=== PATIENT | female | born 1990 | race Caucasian/White ===

== ENCOUNTER 2017-03-09 22:08 | Emergency (ER) | payer BC ==
--- NOTE | 2017-03-09 23:18 | EDM.PDOC ---
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 Since that time she has had regular periods and her last regular period was as above in the beginning of January. When she missed her period she did a test and it was positive. Patient tells me that she has been spotting using a small light pad every day since February 24 and in fact, today spotting has significantly reduced and is practically gone. She has not passed any tissue or clots and she says that today at 4 PM she started having right lower abdominal pain/pelvic pain and right flank pain without fever chills urinary complaints vomiting or diarrhea. She's been eating and drinking normally. She has not had sexual intercourse since beginning january. She is concerned because of her history of ectopic and this right-sided pain with a positive test. She has contacted [facility] women's health and has an appointment with them tomorrow but has not seen them yet. Patient denies any strenuous activities or other vaginal discharge other than the vaginal spotting. Patient is unsure of her blood type and unsure if she received RhoGAM with the ectopic and 2015 Review of systems: As per history of present illness and below otherwise all systems reviewed and negative. Past medical history: As per history of present illness and as reviewed below otherwise noncontributory. Surgical history: As per history of present illness and as reviewed below otherwise noncontributory. Social history: No reported history of drug or alcohol abuse. Family history: As per history of present illness and as reviewed below otherwise noncontributory. Physical exam: Gen.: Well-developed well-nourished female who is nontoxic and moves in the ED without distress. Vital signs are noted by me. HEENT: Atraumatic, normocephalic, pupils reactive, negative for conjunctival pallor or scleral icterus, mucous membranes moist, throat clear, neck supple, nontender, trachea midline. Lungs: Clear to auscultation, breath sounds equal bilaterally, chest nontender. Heart: S1S2, regular rate and rhythm no overt murmurs Abdomen: Soft, nondistended, mild suprapubic and right lower abdominal tenderness without rebound or guarding, bowel sounds are hypoactive Negative for masses or hepatosplenomegaly. Negative for costovertebral tenderness. Pelvis: Stable nontender. Genitourinary: Deferred. Rectal: Deferred. Extremities: Atraumatic, negative for cords or calf pain. Neurovascular unremarkable. Neuro: Awake, alert, oriented. Cranial nerves II through XII unremarkable. Cerebellum unremarkable. Motor and sensory unremarkable throughout. Exam nonfocal. Diagnostics: CBC UA urine culture if indicated quantitative hCG ABO Rh pelvic ultrasound Therapeutics: [] 0153: Case was discussed with Dr. Ferraro, as the patient has an appointment tomorrow with Nicole Jacinto. She is aware of all testing results including the ultrasound and says that the patient can be discharged home and can keep her appointment in the morning at 9 AM with them and they will follow this up with serial quantitative hCGs and ultrasounds. The patient was advised to take Tylenol only for pain and to keep this appointment and reasons to return to the ED Impression: Early versus early ectopic Definitive disposition and diagnosis as appropriate pending reevaluation and review of above. 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: Musculoskeletal History: Reports: None Neurological History: Reports: None Psychiatric History: Reports: None Endocrine/Metabolic History: Reports: None Dermatologic History: Reports: None - Infectious Disease History Infectious Disease History: Reports: None - Past Surgical History HEENT Surgical History: Reports: None Female Surgical History: Reports: Other (See Below) Other Female Surgeries/Procedures: removal of left tube in 2016 Social & Family History - Family History Family Medical History: Noncontributory - Tobacco Use Smoking Status *Q: Never Smoker - Recreational Drug Use Recreational Drug Use: No ED ROS GENERAL - Review of Systems Review Of Systems: ROS reveals no pertinent complaints other than HPI. ED EXAM, GENERAL - Physical Exam Exam: See Below (See dictation) Course - Vital Signs Last Recorded V/S: Last Vital Signs Temp 36.6 C 03/09/17 22:53 Pulse 76 03/10/17 01:23 Resp 14 03/10/17 01:23 BP 101/58 L 03/10/17 01:23 Pulse Ox 99 03/10/17 01:23 - Orders/Labs/Meds Orders: Active Orders 24 hr Category Date Time Status OB 1st Tri Sgl 1st Gest [US] Stat Exams 03/09/17 23:14 Taken Labs: Laboratory Tests 03/09/17 03/09/17 03/09/17 Range/Units 23:20 23:33 23:33 WBC 9.78 (4.0-11.0) K/uL RBC 3.76 L (4.30-5.90) M/uL Hgb 12.0 (12.0-16.0) g/dL Hct 34.5 L (36.0-46.0) % MCV 91.8 (80.0-98.0) fL MCH 31.9 (27.0-32.0) pg MCHC 34.8 (31.0-37.0) g/dL RDW Std Deviation 43.2 (28.0-62.0) fl RDW Coeff of Caren 13 (11.0-15.0) % Plt Count 296 (150-400) K/uL MPV 10.30 (7.40-12.00) fL Neut % (Auto) 73.2 (48.0-80.0) % Lymph % (Auto) 17.5 (16.0-40.0) % [place] % (Auto) 8.5 (0.0-15.0) % Eos % (Auto) 0.6 (0.0-7.0) % Baso % (Auto) 0.2 (0.0-1.5) % Neut # (Auto) 7.2 H (1.4-5.7) K/uL Lymph # (Auto) 1.7 (0.6-2.4) K/uL [place] # (Auto) 0.8 (0.0-0.8) K/uL Eos # (Auto) 0.1 (0.0-0.7) K/uL Baso # (Auto) 0.0 (0.0-0.1) K/uL Nucleated RBC % 0.0 /100WBC Nucleated RBCs # 0 K/uL HCG, Quant 95.1 mIU/mL Urine Color YELLOW Urine Appearance CLEAR Urine pH 7.0 (5.0-8.0) Ur Specific [place] 1.015 (1.001-1.035) Urine Protein NEGATIVE (NEGATIVE) mg/dL Urine Glucose (UA) NEGATIVE (NEGATIVE) mg/dL Urine Ketones NEGATIVE (NEGATIVE) mg/dL Urine Occult Blood LARGE H (NEGATIVE) Urine Nitrite NEGATIVE (NEGATIVE) Urine Bilirubin NEGATIVE (NEGATIVE) Urine Urobilinogen 0.2 (<2.0) EU/dL Ur Leukocyte Esterase NEGATIVE (NEGATIVE) Urine RBC 0-2 (0-2/HPF) Urine WBC 0-1 (0-5/HPF) Ur Epithelial Cells FEW (NONE-FEW) Urine Bacteria RARE (NEGATIVE) Blood Type 03/09/17 Range/Units 23:33 WBC (4.0-11.0) K/uL RBC (4.30-5.90) M/uL Hgb (12.0-16.0) g/dL Hct (36.0-46.0) % MCV (80.0-98.0) fL MCH (27.0-32.0) pg MCHC (31.0-37.0) g/dL RDW Std Deviation (28.0-62.0) fl RDW Coeff of Caren (11.0-15.0) % Plt Count (150-400) K/uL MPV (7.40-12.00) fL Neut % (Auto) (48.0-80.0) % Lymph % (Auto) (16.0-40.0) % [place] % (Auto) (0.0-15.0) % Eos % (Auto) (0.0-7.0) % Baso % (Auto) (0.0-1.5) % Neut # (Auto) (1.4-5.7) K/uL Lymph # (Auto) (0.6-2.4) K/uL [place] # (Auto) (0.0-0.8) K/uL Eos # (Auto) (0.0-0.7) K/uL Baso # (Auto) (0.0-0.1) K/uL Nucleated RBC % /100WBC Nucleated RBCs # K/uL HCG, Quant mIU/mL Urine Color Urine Appearance Urine pH (5.0-8.0) Ur Specific [place] (1.001-1.035) Urine Protein (NEGATIVE) mg/dL Urine Glucose (UA) (NEGATIVE) mg/dL Urine Ketones (NEGATIVE) mg/dL Urine Occult Blood (NEGATIVE) Urine Nitrite (NEGATIVE) Urine Bilirubin (NEGATIVE) Urine Urobilinogen (<2.0) EU/dL Ur Leukocyte Esterase (NEGATIVE) Urine RBC (0-2/HPF) Urine WBC (0-5/HPF) Ur Epithelial Cells (NONE-FEW) Urine Bacteria (NEGATIVE) Blood Type A POSITIVE Departure - Departure Time of Disposition: 01:57 Disposition: Home, Self-Care 01 Condition: Good Clinical Impression: with abdominal pain of right lower quadrant, antepartum - Discharge Information Referrals: PCP,None [Primary Care Provider] - Forms: ED Department Discharge Additional Instructions: The following information is given to patients seen in the emergency department who are being discharged to home. This information is to outline your options for follow-up care. We provide all patients seen in our emergency department with a follow-up referral. The need for follow-up, as well as the timing and circumstances, are variable depending upon the specifics of your emergency department visit. If you don't have a primary care physician on staff, we will provide you with a referral. We always advise you to contact your personal physician following an emergency department visit to inform them of the circumstance of the visit and for follow-up with them and/or the need for any referrals to a consulting specialist. The emergency department will also refer you to a specialist when appropriate. This referral assures that you have the opportunity for followup care with a specialist. All of these measure are taken in an effort to provide you with optimal care, which includes your followup. Under all circumstances we always encourage you to contact your private physician who remains a resource for coordinating your care. When calling for followup care, please make the office aware that this follow-up is from your recent emergency room visit. If for any reason you are refused follow-up, please contact the [facility] emergency department at and ask to speak to the emergency department charge nurse. [facility]'s [facility] [address] [place] [id number] Please keep your appointment tomorrow at [facility] at 9 AM. Nothing in vagina until you're followed up by the doctors. Use Tylenol only for pain push hydration and return to ER as needed and as discussed - My Orders Last 24 Hours: My Active Orders 03/09/17 23:14 OB 1st Tri Sgl 1st Gest [US] Stat - Assessment/Plan Last 24 Hours: My Active Orders 03/09/17 23:14 OB 1st Tri Sgl 1st Gest [US] Stat
--- NOTE | 2017-03-10 09:20 | US ---
EXAM DATE: 03/09/17 PATIENT'S AGE: 26 Patient: ROSS THIBODEAUX Facility: [place], [place] Site . Site : 1990 Study: US OB Pelvis [id number] 12:26:37 AM Ordering Physician: Daron Tarango Final Report: HISTORY: Right pelvic pain and bleeding x12 hours. HCG 95.1. History of left salpingectomy for ectopic in 2016. FINDINGS: Multiple delacruz scale static images from a OB ultrasound were evaluated. Uterus is normal size. The endometrial stripe is 9 millimeters in thickness. No intrauterine gestational sac is present. There is trace fluid seen lower uterine segment. There is free fluid seen within the cul-de-sac. Right ovary measures 2.5 x 1.6 x 1.9 centimeters. Adjacent to the right ovary is a complex mass measuring 2.8 x 1.7 x 2.3 centimeters. This mass and the right ovary have limited vascularity. No madeleine gestational sac or pole is seen. Left ovary measures 3.6 x 2.3 x 3.0 centimeters and is normal in appearance. IMPRESSION: 1. No intrauterine is identified. However, HCT of 95.1, an intrauterine would not be expected to be visualized. 2. 2.8 cm complex cystic masses seen within the right at adnexa adjacent to the ovary. This is suspicious for ectopic however this is not particularly vascular. It does not contain a gestational sac or pole. Consider close interval followup with ultrasound and serial HCG. Dictated by Laury Thibodeaux MD @ 03/10/2017 12:33:36 AM Dictated by: Laury Thibodeaux MD @ 03/10/2017 00:33:58 (Electronic Signature) Report Signed by Proxy. RADHA
== END 2017-03-10 02:05 | disposition home or self-care (01) ==
LOC: MW.ED 22:08
DX: O99.89 Other specified diseases and conditions complicating pregnancy, childbirth and the puerperium (principal); R10.31 Right lower quadrant pain; Z3A.01 Less than 8 weeks gestation of pregnancy
CPT/HCPCS: 36415; 76801; 76801-26; 81001; 84702; 85025; 86900; 86901; 99284; 99284-25

== ENCOUNTER 2018-07-13 07:18 | Emergency (ER) | payer BC ==
[2018-07-13] MEDS ORDERED: Sodium Chloride 0.9% 2.5 ML Syringe FLUSH PRN (07:36)
[2018-07-13] MEDS ORDERED: Ketorolac 30 MG/ML SDV IVPUSH ONE (07:36)
[2018-07-13] MEDS ORDERED: Sodium Chloride 0.9% 1,000 ML IV ONE (07:36)
[2018-07-13] MEDS ORDERED: Sodium Chloride 0.9% 10 ML Syringe FLUSH PRN (07:36)
--- NOTE | 2018-07-13 07:36 | EDM.PDOC ---
ED HPI GENERAL MEDICAL PROBLEM - General Chief Complaint: Chest Pain Stated Complaint: CHEST PAINS Time Seen by Provider: 07/13/18 07:20 Source of Information: Reports: Patient History Limitations: Reports: No Limitations - History of Present Illness INITIAL COMMENTS - FREE TEXT/NARRATIVE: History of present illness: []Patient was at work and started having repeated sharp left sided chest pains that lasted 1-2 seconds. She sat down however the pains continued. Also states she feels lightheaded and dizzy without spinning sensation. Patient also felt she sweaty at the time of the symptoms. No shortness of breath, leg pain nausea , vomiting, fevers, chills, diarrhea. Patient has no history of blood clots, is not currently on control and denies smoking. Review of systems: As per history of present illness and below otherwise all systems reviewed and negative. Past medical history: As per history of present illness and as reviewed below otherwise noncontributory. Surgical history: As per history of present illness and as reviewed below otherwise noncontributory. Social history: No reported history of drug or alcohol abuse. Family history: As per history of present illness and as reviewed below otherwise noncontributory. Physical exam: General: Well developed, well nourished in NAD HEENT: Atraumatic, normocephalic, pupils reactive, negative for conjunctival pallor or scleral icterus, mucous membranes moist, throat clear, neck supple, nontender, trachea midline. Lungs: Clear to auscultation, breath sounds equal bilaterally, chest nontender. Heart: S1S2, regular, negative for clicks, rubs, or JVD. Abdomen: NABS, Soft, nondistended, nontender. Negative for masses or hepatosplenomegaly. Negative for costovertebral tenderness. Pelvis: Stable nontender. Genitourinary: Deferred. Rectal: Deferred. Extremities: Atraumatic, negative for cords or calf pain. Neurovascular unremarkable. Neuro: Awake, alert, oriented. Cranial nerves II through XII unremarkable. Cerebellum unremarkable. Motor and sensory unremarkable throughout. Exam nonfocal. Skin:warm and dry Diagnostics: EKG, chest x-ray, CBC, chemistry, troponin, UA, Therapeutics: The fluid, Toradol ED Course: Improved Impression: Dizziness, atypical chest pain Prescriptions: None Plan: Follow-up with primary care. Definitive disposition and diagnosis as appropriate pending reevaluation and review of above. 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: Musculoskeletal History: Reports: None Neurological History: Reports: None Psychiatric History: Reports: None Endocrine/Metabolic History: Reports: None Dermatologic History: Reports: None - Infectious Disease History Infectious Disease History: Reports: Chicken Pox - Past Surgical History HEENT Surgical History: Reports: None Female Surgical History: Reports: Other (See Below) Other Female Surgeries/Procedures: removal of left tube in 2016 Social & Family History - Family History Family Medical History: Noncontributory - Tobacco Use Smoking Status *Q: Never Smoker - Caffeine Use Caffeine Use: Reports: Coffee, Energy Drinks, Soda - Recreational Drug Use Recreational Drug Use: No ED ROS GENERAL - Review of Systems Review Of Systems: ROS reveals no pertinent complaints other than HPI. ED EXAM, GENERAL - Physical Exam Exam: See Below (See history of present illness) Course - Vital Signs Last Recorded V/S: Last Vital Signs Temp 97.4 F 07/13/18 07:24 Pulse 79 07/13/18 07:24 Resp 16 07/13/18 07:24 BP 123/81 07/13/18 07:24 Pulse Ox 99 07/13/18 07:24 - Orders/Labs/Meds Orders: Active Orders 24 hr Category Date Time Status EKG Documentation Completion [RC] STAT Care 07/13/18 07:35 Active Sodium Chloride 0.9% [Saline Flush] Med 07/13/18 07:36 Active 10 ml FLUSH ASDIRECTED PRN Sodium Chloride 0.9% [Saline Flush] Med 07/13/18 07:36 Active 2.5 ml FLUSH ASDIRECTED PRN Saline Lock Insert [OM.PC] Stat Oth 07/13/18 07:35 Ordered Medication Orders Sodium Chloride (Saline Flush) 10 ml FLUSH ASDIRECTED PRN PRN Reason: Keep Vein Open Last Admin: 07/13/18 07:58 Dose: 10 ml Sodium Chloride (Saline Flush) 2.5 ml FLUSH ASDIRECTED PRN PRN Reason: Keep Vein Open Last Admin: 07/13/18 07:58 Dose: 2.5 ml Labs: Laboratory Tests 07/13/18 07/13/18 07/13/18 Range/Units 07:40 07:40 08:55 WBC 6.44 (4.0-11.0) K/uL RBC 3.99 L (4.30-5.90) M/uL Hgb 12.6 (12.0-16.0) g/dL Hct 36.8 (36.0-46.0) % MCV 92.2 (80.0-98.0) fL MCH 31.6 (27.0-32.0) pg MCHC 34.2 (31.0-37.0) g/dL RDW Std Deviation 43.8 (28.0-62.0) fl RDW Coeff of Caren 13 (11.0-15.0) % Plt Count 276 (150-400) K/uL MPV 10.50 (7.40-12.00) fL Neut % (Auto) 63.3 (48.0-80.0) % Lymph % (Auto) 25.6 (16.0-40.0) % [place] % (Auto) 8.9 (0.0-15.0) % Eos % (Auto) 1.7 (0.0-7.0) % Baso % (Auto) 0.5 (0.0-1.5) % Neut # (Auto) 4.1 (1.4-5.7) K/uL Lymph # (Auto) 1.7 (0.6-2.4) K/uL [place]ick # (Auto) 0.6 (0.0-0.8) K/uL Eos # (Auto) 0.1 (0.0-0.7) K/uL Baso # (Auto) 0.0 (0.0-0.1) K/uL Nucleated RBC % 0.0 /100WBC Nucleated RBCs # 0 K/uL Sodium 141 (136-145) mmol/L Potassium 3.9 (3.5-5.1) mmol/L Chloride 105 (98-107) mmol/L Carbon Dioxide 25.3 (21.0-32.0) mmol/L BUN 16 (7.0-18.0) mg/dL Creatinine 0.9 (0.6-1.0) mg/dL Est Cr Clr Drug Dosing 79.64 mL/min Estimated GFR (MDRD) > 60.0 ml/min Glucose 92 (74-106) mg/dL Calcium 9.6 (8.5-10.1) mg/dL Total Bilirubin 0.5 (0.2-1.0) mg/dL AST 16 (15-37) IU/L ALT 26 (14-63) IU/L Alkaline Phosphatase 57 (46-116) U/L Troponin I < 0.050 (0.000-0.056) ng/mL Total Protein 7.8 (6.4-8.2) g/dL Albumin 4.0 (3.4-5.0) g/dL Globulin 3.8 (2.6-4.0) g/dL Albumin/Globulin Ratio 1.1 (0.9-1.6) Urine Color YELLOW Urine Appearance SLT CLOUDY Urine pH 6.0 (5.0-8.0) Ur Specific [place] 1.010 (1.001-1.035) Urine Protein NEGATIVE (NEGATIVE) mg/dL Urine Glucose (UA) NEGATIVE (NEGATIVE) mg/dL Urine Ketones NEGATIVE (NEGATIVE) mg/dL Urine Occult Blood NEGATIVE (NEGATIVE) Urine Nitrite NEGATIVE (NEGATIVE) Urine Bilirubin NEGATIVE (NEGATIVE) Urine Urobilinogen 0.2 (<2.0) EU/dL Ur Leukocyte Esterase NEGATIVE (NEGATIVE) Urine RBC NONE SEEN (0-2/HPF) Urine WBC 0-1 (0-5/HPF) Ur Epithelial Cells OCCASIONAL (NONE-FEW) Urine Bacteria RARE (NEGATIVE) Urine HCG, Qual (NEGATIVE) 07/13/18 Range/Units 08:55 WBC (4.0-11.0) K/uL RBC (4.30-5.90) M/uL Hgb (12.0-16.0) g/dL Hct (36.0-46.0) % MCV (80.0-98.0) fL MCH (27.0-32.0) pg MCHC (31.0-37.0) g/dL RDW Std Deviation (28.0-62.0) fl RDW Coeff of Caren (11.0-15.0) % Plt Count (150-400) K/uL MPV (7.40-12.00) fL Neut % (Auto) (48.0-80.0) % Lymph % (Auto) (16.0-40.0) % Maverick % (Auto) (0.0-15.0) % Eos % (Auto) (0.0-7.0) % Baso % (Auto) (0.0-1.5) % Neut # (Auto) (1.4-5.7) K/uL Lymph # (Auto) (0.6-2.4) K/uL [place]ick # (Auto) (0.0-0.8) K/uL Eos # (Auto) (0.0-0.7) K/uL Baso # (Auto) (0.0-0.1) K/uL Nucleated RBC % /100WBC Nucleated RBCs # K/uL Sodium (136-145) mmol/L Potassium (3.5-5.1) mmol/L Chloride (98-107) mmol/L Carbon Dioxide (21.0-32.0) mmol/L BUN (7.0-18.0) mg/dL Creatinine (0.6-1.0) mg/dL Est Cr Clr Drug Dosing mL/min Estimated GFR (MDRD) ml/min Glucose (74-106) mg/dL Calcium (8.5-10.1) mg/dL Total Bilirubin (0.2-1.0) mg/dL AST (15-37) IU/L ALT (14-63) IU/L Alkaline Phosphatase (46-116) U/L Troponin I (0.000-0.056) ng/mL Total Protein (6.4-8.2) g/dL Albumin (3.4-5.0) g/dL Globulin (2.6-4.0) g/dL Albumin/Globulin Ratio (0.9-1.6) Urine Color Urine Appearance Urine pH (5.0-8.0) Ur Specific [place] (1.001-1.035) Urine Protein (NEGATIVE) mg/dL Urine Glucose (UA) (NEGATIVE) mg/dL Urine Ketones (NEGATIVE) mg/dL Urine Occult Blood (NEGATIVE) Urine Nitrite (NEGATIVE) Urine Bilirubin (NEGATIVE) Urine Urobilinogen (<2.0) EU/dL Ur Leukocyte Esterase (NEGATIVE) Urine RBC (0-2/HPF) Urine WBC (0-5/HPF) Ur Epithelial Cells (NONE-FEW) Urine Bacteria (NEGATIVE) Urine HCG, Qual NEGATIVE (NEGATIVE) Meds: Medications Generic Name Dose Route Start Last Admin Trade Name Freq PRN Reason Stop Dose Admin Sodium Chloride 10 ml 07/13/18 07:36 07/13/18 07:58 Saline Flush FLUSH 10 ml ASDIRECTED PRN Administration Keep Vein Open Sodium Chloride 2.5 ml 07/13/18 07:36 07/13/18 07:58 Saline Flush FLUSH 2.5 ml ASDIRECTED PRN Administration Keep Vein Open Discontinued Medications Generic Name Dose Route Start Last Admin Trade Name Freq PRN Reason Stop Dose Admin Sodium Chloride 1,000 mls @ 999 mls/hr 07/13/18 07:36 07/13/18 07:54 Normal Saline IV 07/13/18 08:36 999 mls/hr .Bolus ONE Administration Ketorolac Tromethamine 30 mg 07/13/18 07:36 07/13/18 07:57 Toradol IVPUSH 07/13/18 07:37 30 mg ONETIME ONE Administration Departure - Departure Time of Disposition: 09:21 Disposition: Home, Self-Care 01 Condition: Good Clinical Impression: Atypical chest pain, Dizziness Forms: ED Department Discharge Additional Instructions: The following information is given to patients seen in the emergency department who are being discharged to home. This information is to outline your options for follow-up care. We provide all patients seen in our emergency department with a follow-up referral. The need for follow-up, as well as the timing and circumstances, are variable depending upon the specifics of your emergency department visit. If you don't have a primary care physician on staff, we will provide you with a referral. We always advise you to contact your personal physician following an emergency department visit to inform them of the circumstance of the visit and for follow-up with them and/or the need for any referrals to a consulting specialist. The emergency department will also refer you to a specialist when appropriate. This referral assures that you have the opportunity for follow-up care with a specialist. All of these measure are taken in an effort to provide you with optimal care, which includes your follow-up. Under all circumstances we always encourage you to contact your private physician who remains a resource for coordinating your care. When calling for follow-up care, please make the office aware that this follow-up is from your recent emergency room visit. If for any reason you are refused follow-up, please contact the [facility] Emergency Department at and asked to speak to the emergency department charge nurse. [facility] [address] [place] [address] - My Orders Last 24 Hours: My Active Orders 07/13/18 07:35 EKG Documentation Completion [RC] STAT Saline Lock Insert [OM.PC] Stat 07/13/18 07:36 Sodium Chloride 0.9% [Saline Flush] 10 ml FLUSH ASDIRECTED PRN Sodium Chloride 0.9% [Saline Flush] 2.5 ml FLUSH ASDIRECTED PRN - Assessment/Plan Last 24 Hours: My Active Orders 07/13/18 07:35 EKG Documentation Completion [RC] STAT Saline Lock Insert [OM.PC] Stat 07/13/18 07:36 Sodium Chloride 0.9% [Saline Flush] 10 ml FLUSH ASDIRECTED PRN Sodium Chloride 0.9% [Saline Flush] 2.5 ml FLUSH ASDIRECTED PRN
[2018-07-13 08:22] LABS: CHLORIDE,CL 105 mmol/L (98-107); SODIUM,NA 141 mmol/L (136-145)
--- NOTE | 2018-07-13 09:10 | CR ---
EXAMINATION: Portable chest radiograph. HISTORY: Shortness of breath. FINDINGS: The trachea is midline. The cardiomediastinal silhouette is within normal limits. No pulmonary infiltrates, effusions or pneumothorax. Osseous structures appear unremarkable. IMPRESSION: No acute cardiopulmonary process.
== END 2018-07-13 09:42 | disposition home or self-care (01) ==
LOC: MW.ED 07:18
DX: R07.89 Other chest pain (principal); R42 Dizziness and giddiness; Z79.899 Other long term (current) drug therapy
CPT/HCPCS: 36415; 71045; 80053; 81001; 81025; 84484; 85025; 93005; 96361; 96374; 99285; J1885; J7040

== ENCOUNTER 2018-11-23 18:52 | Emergency (ER) | payer BC ==
[2018-11-23] MEDS ORDERED: Sodium Chloride 0.9% 1,000 ML IV ONE (19:27)
[2018-11-23 19:34] LABS: BLOOD UREA NITROGEN,BUN 7 mg/dL (7.0-18.0); CARBON DIOXIDE,CO2 22.4 mmol/L (21.0-32.0); CHLORIDE,CL 103 mmol/L (98-107); GLUCOSE RANDOM 92 mg/dL (74-106); POTASSIUM,K 3.7 mmol/L (3.5-5.1); SODIUM,NA 138 mmol/L (136-145)
--- NOTE | 2018-11-23 19:47 | EDM.PDOC ---
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 The patient states that she is 8 weeks and has been having trouble with nausea and vomiting despite taking Zofran. She states that today she vomited 5-6 times and was not even able to keep down water. She denies any abdominal pain or cramping, urinary symptoms, vaginal symptoms. no pain Pain Score (Numeric/FACES): 0 - Related Data Allergies Allergy/AdvReac Type Severity Reaction Status Date / Time No Known Allergies Allergy Verified 11/23/18 18:59 Home Meds: Home Meds Cholecalciferol (Vitamin D3) [Vitamin D3] 1,000 unit PO DAILY 03/09/17 [History] Mv-Mn/Iron/FA/Herbal/Digestive [ One Tablet] 1 tab PO DAILY 03/09/17 [ History] Ondansetron [Zofran ODT] 4 mg PO Q8HR 11/23/18 [History] Sertraline HCl [Zoloft] 100 mg PO BEDTIME 11/23/18 [History] Past Medical History HEENT History: Reports: None Cardiovascular History: Reports: None Respiratory History: Reports: None Gastrointestinal History: Reports: None Genitourinary History: Reports: None 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 , Musculoskeletal History: Reports: None Neurological History: Reports: None Psychiatric History: Reports: None Endocrine/Metabolic History: Reports: None Dermatologic History: Reports: None - Infectious Disease History Infectious Disease History: Reports: None - Past Surgical History HEENT Surgical History: Reports: None Female Surgical History: Reports: Other (See Below) Other Female Surgeries/Procedures: removal of left tube in 2016 Social & Family History - Family History Family Medical History: Noncontributory - Caffeine Use Caffeine Use: Reports: Coffee, Energy Drinks, Soda - Recreational Drug Use Recreational Drug Use: No ED ROS GENERAL - Review of Systems Review Of Systems: ROS reveals no pertinent complaints other than HPI. ED EXAM - Physical Exam Exam: See Below Exam Limited By: No Limitations General Appearance: Alert, No Apparent Distress Ears: Normal External Exam Nose: Normal Inspection Throat/Mouth: Normal Inspection Head: Atraumatic, Normocephalic Neck: Normal Inspection Respiratory/Chest: No Respiratory Distress, Lungs Clear, Normal Breath Sounds Cardiovascular: Normal Peripheral Pulses, Regular Rate, Rhythm, No Murmur GI/Abdominal Exam: Normal Bowel Sounds, Soft, Non-Tender, No Distention Back Exam: Normal Inspection Extremities: Normal Inspection Neurological: Alert, Oriented Psychiatric: Normal Affect, Normal Mood Skin Exam: Warm, Dry, Intact, Normal Color, No Rash Lymphatic: No Adenopathy Course - Vital Signs Last Recorded V/S: Last Vital Signs Temp 36.4 C 11/23/18 19:01 Pulse 88 11/23/18 19:01 Resp 16 11/23/18 19:01 BP 107/71 11/23/18 19:01 Pulse Ox 98 11/23/18 19:01 - Orders/Labs/Meds Orders: Active Orders 24 hr Category Date Time Status Sodium Chloride 0.9% [Normal Saline] 1,000 ml Med 11/23/18 19:27 Active IV .Bolus Medication Orders Sodium Chloride (Normal Saline) 1,000 mls @ 999 mls/hr IV .Bolus ONE Stop: 11/23/18 20:27 Last Admin: 11/23/18 19:28 Dose: 999 mls/hr Labs: Laboratory Tests 11/23/18 Range/Units 19:04 Sodium 138 (136-145) mmol/L Potassium 3.7 (3.5-5.1) mmol/L Chloride 103 (98-107) mmol/L Carbon Dioxide 22.4 (21.0-32.0) mmol/L BUN 7 (7.0-18.0) mg/dL Creatinine 0.7 (0.6-1.0) mg/dL Est Cr Clr Drug Dosing 111.01 mL/min Estimated GFR (MDRD) > 60.0 ml/min Glucose 92 (74-106) mg/dL Calcium 9.1 (8.5-10.1) mg/dL Meds: Medications Generic Name Dose Route Start Last Admin Trade Name Freq PRN Reason Stop Dose Admin Sodium Chloride 1,000 mls @ 999 mls/hr 11/23/18 19:27 11/23/18 19:28 Normal Saline IV 11/23/18 20:27 999 mls/hr .Bolus ONE Administration Departure - Departure Time of Disposition: 19:45 Disposition: Home, Self-Care 01 Condition: Good Clinical Impression: Nausea and vomiting during - Discharge Information Referrals: PCP,None [Primary Care Provider] - Marbella Ferraro MD [Physician] - Additional Instructions: The following information is given to patients seen in the emergency department who are being discharged to home. This information is to outline your options for follow-up care. We provide all patients seen in our emergency department with a follow-up referral. The need for follow-up, as well as the timing and circumstances, are variable depending upon the specifics of your emergency department visit. If you don't have a primary care physician on staff, we will provide you with a referral. We always advise you to contact your personal physician following an emergency department visit to inform them of the circumstance of the visit and for follow-up with them and/or the need for any referrals to a consulting specialist. The emergency department will also refer you to a specialist when appropriate. This referral assures that you have the opportunity for follow-up care with a specialist. All of these measure are taken in an effort to provide you with optimal care, which includes your follow-up. Under all circumstances we always encourage you to contact your private physician who remains a resource for coordinating your care. When calling for follow-up care, please make the office aware that this follow-up is from your recent emergency room visit. If for any reason you are refused follow-up, please contact the [facility] Emergency Department at and asked to speak to the emergency department charge nurse. 1. Follow-up with Dr. ferraro - My Orders Last 24 Hours: My Active Orders 11/23/18 19:27 Sodium Chloride 0.9% [Normal Saline] 1,000 ml IV .Bolus - Assessment/Plan Last 24 Hours: My Active Orders 11/23/18 19:27 Sodium Chloride 0.9% [Normal Saline] 1,000 ml IV .Bolus
== END 2018-11-23 20:01 | disposition home or self-care (01) ==
LOC: MW.ED 18:52
DX: O21.9 Vomiting of pregnancy, unspecified (principal); Z79.899 Other long term (current) drug therapy; Z3A.08 8 weeks gestation of pregnancy
CPT/HCPCS: 36415; 80048; 99284; J7040

== ENCOUNTER 2018-12-20 10:42 | Emergency (ER) | payer BC ==
[2018-12-20] MEDS ORDERED: Sodium Chloride 0.9% 1,000 ML IV ONE (10:56)
[2018-12-20] MEDS ORDERED: Ondansetron 4 MG/2 ML SDV IVPUSH ONE (10:56)
--- NOTE | 2018-12-20 11:00 | EDM.PDOC ---
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 Patient states she 's had issues with nausea and vomiting throughout her whole and follows with Dr. Ferraro. Patient states that she was originally taking Zofran which had stopped working for her so Dr. Ferraro switched her to Phenergan. Patient states she has not taken her Phenergan today. Patient states she's had 2 episodes of vomiting today and has not been drinking or eating today. Patient denies any abdominal pain, cramping, or vaginal bleeding or concerns. Patient was seen in the ED on 11/23/18 for nausea and vomiting during . Patient denies fever, chills, chest pain, shortness of breath, or cough. Denies headache, neck stiff ness, change in vision, syncope, or near syncope. Denies abdominal pain, diarrhea, constipation, or dysuria. Has not noted any blood in urine or stool. Review of systems: As per history of present illness and below otherwise all systems reviewed and negative. Past medical history: As per history of present illness and as reviewed below otherwise noncontributory. Surgical history: As per history of present illness and as reviewed below otherwise noncontributory. Social history: See social history for further information Family history: As per history of present illness and as reviewed below otherwise noncontributory. Physical exam: General: Patient is alert, oriented, and in no acute distress. Patient sitting comfortably on exam table. HEENT: Atraumatic, normocephalic, pupils equal and reactive bilaterally, negative for conjunctival pallor or scleral icterus, mucous membranes dry, TMs normal bilaterally, throat clear, neck supple, nontender, trachea midline. No drooling or trismus noted. No meningeal signs. No hot potato voice noted. Lungs: Clear to auscultation, breath sounds equal bilaterally, chest nontender. Heart: S1S2, regular rate and rhythm without overt murmur Abdomen: Soft, nondistended, nontender. Negative for masses or hepatosplenomegaly. Negative for costovertebral tenderness. Pelvis: Stable nontender. Genitourinary: Deferred. Rectal: Deferred. Skin: Intact, warm, dry. No lesions or rashes noted. Extremities: Atraumatic, negative for cords or calf pain. Neurovascular unremarkable. Neuro: Awake, alert, oriented. Cranial nerves II through XII unremarkable. Cerebellum unremarkable. Motor and sensory unremarkable throughout. Exam nonfocal. Notes: Patient is able to tolerate by mouth intake in the ED and states that she feels much better with therapeutics today. Did call Dr. ferraro and has a follow-up appointment with her established. Voices understanding and is agreeable to plan of care. Denies any further questions or concerns at this time. Diagnostics: CBC, CMP, UA Therapeutics: Zofran, Saline Prescription: None Impression: Nausea and vomiting , 12 weeks Plan: 1. Encourage small but frequent sips of fluids to prevent dehydration. 2. Follow-up with your MASTER CONTROL ENGINEER provider as scheduled and as discussed. Return to the ED as needed and as discussed. Definitive disposition and diagnosis as appropriate pending reevaluation and review of above. - Related Data Allergies Allergy/AdvReac Type Severity Reaction Status Date / Time No Known Allergies Allergy Verified 11/23/18 18:59 Home Meds: Home Meds Cholecalciferol (Vitamin D3) [Vitamin D3] 1,000 unit PO DAILY 03/09/17 [History] Mv-Mn/Iron/FA/Herbal/Digestive [ One Tablet] 1 tab PO DAILY 03/09/17 [ History] Ondansetron [Zofran ODT] 4 mg PO Q8HR 11/23/18 [History] Sertraline HCl [Zoloft] 100 mg PO BEDTIME 11/23/18 [History] Past Medical History HEENT History: Reports: None Cardiovascular History: Reports: None Respiratory History: Reports: None Gastrointestinal History: Reports: None Genitourinary History: Reports: None 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 , Musculoskeletal History: Reports: None Neurological History: Reports: None Psychiatric History: Reports: None Endocrine/Metabolic History: Reports: None Dermatologic History: Reports: None - Infectious Disease History Infectious Disease History: Reports: None - Past Surgical History HEENT Surgical History: Reports: None Female Surgical History: Reports: Other (See Below) Other Female Surgeries/Procedures: removal of left tube in 2016 Social & Family History - Family History Family Medical History: Noncontributory - Caffeine Use Caffeine Use: Reports: Coffee, Energy Drinks, Soda ED ROS GENERAL - Review of Systems Review Of Systems: ROS reveals no pertinent complaints other than HPI. ED EXAM, GENERAL - Physical Exam Exam: See Below (See dictation) Course - Vital Signs Last Recorded V/S: Last Vital Signs Temp 97.3 F 12/20/18 10:55 Pulse 101 H 12/20/18 10:55 Resp 16 12/20/18 10:55 BP 107/71 12/20/18 10:55 Pulse Ox 100 12/20/18 11:03 Orthostatic Blood Pressure [ 121/70 Standing] Orthostatic Blood Pressure [ 111/68 Sitting] Orthostatic Blood Pressure [ 116/68 Supine] - Orders/Labs/Meds Orders: Active Orders 24 hr Category Date Time Status Orthostatic Vital Signs [RC] ASDIRECTED Care 12/20/18 10:57 Active Labs: Laboratory Tests 12/20/18 12/20/18 12/20/18 Range/Units 10:59 11:08 11:08 WBC 12.86 H (4.0-11.0) K/uL RBC 3.97 L (4.30-5.90) M/uL Hgb 12.7 (12.0-16.0) g/dL Hct 35.0 L (36.0-46.0) % MCV 88.2 (80.0-98.0) fL MCH 32.0 (27.0-32.0) pg MCHC 36.3 (31.0-37.0) g/dL RDW Std Deviation 39.7 (28.0-62.0) fl RDW Coeff of Caren 12 (11.0-15.0) % Plt Count 307 (150-400) K/uL MPV 10.50 (7.40-12.00) fL Neut % (Auto) 84.6 H (48.0-80.0) % Lymph % (Auto) 9.6 L (16.0-40.0) % [place] % (Auto) 5.4 (0.0-15.0) % Eos % (Auto) 0.2 (0.0-7.0) % Baso % (Auto) 0.2 (0.0-1.5) % Neut # (Auto) 10.9 H (1.4-5.7) K/uL Lymph # (Auto) 1.2 (0.6-2.4) K/uL [place] # (Auto) 0.7 (0.0-0.8) K/uL Eos # (Auto) 0.0 (0.0-0.7) K/uL Baso # (Auto) 0.0 (0.0-0.1) K/uL Nucleated RBC % 0.0 /100WBC Nucleated RBCs # 0 K/uL Sodium 133 L (136-145) mmol/L Potassium 3.6 (3.5-5.1) mmol/L Chloride 98 (98-107) mmol/L Carbon Dioxide 20.0 L (21.0-32.0) mmol/L BUN 10 (7.0-18.0) mg/dL Creatinine 0.9 (0.6-1.0) mg/dL Est Cr Clr Drug Dosing 79.64 mL/min Estimated GFR (MDRD) > 60.0 ml/min Glucose 87 (74-106) mg/dL Calcium 9.7 (8.5-10.1) mg/dL Total Bilirubin 0.6 (0.2-1.0) mg/dL AST 18 (15-37) IU/L ALT 16 (14-63) IU/L Alkaline Phosphatase 49 (46-116) U/L Total Protein 8.4 H (6.4-8.2) g/dL Albumin 4.0 (3.4-5.0) g/dL Globulin 4.4 H (2.6-4.0) g/dL Albumin/Globulin Ratio 0.9 (0.9-1.6) Urine Color YELLOW Urine Appearance CLEAR Urine pH 5.5 (5.0-8.0) Ur Specific [place] >= 1.030 (1.001-1.035) Urine Protein NEGATIVE (NEGATIVE) mg/dL Urine Glucose (UA) NEGATIVE (NEGATIVE) mg/dL Urine Ketones >=80 (NEGATIVE) mg/dL Urine Occult Blood NEGATIVE (NEGATIVE) Urine Nitrite NEGATIVE (NEGATIVE) Urine Bilirubin SMALL H (NEGATIVE) Urine Ictotest NEGATIVE Urine Urobilinogen 0.2 (<2.0) EU/dL Ur Leukocyte Esterase NEGATIVE (NEGATIVE) Meds: Medications Discontinued Medications Generic Name Dose Route Start Last Admin Trade Name Kayla PRN Reason Stop Dose Admin Sodium Chloride 1,000 mls @ 999 mls/hr 12/20/18 10:56 12/20/18 11:14 Normal Saline IV 12/20/18 11:56 999 mls/hr STAT ONE Administration Ondansetron HCl 4 mg 12/20/18 10:56 12/20/18 11:14 Zofran IVPUSH 12/20/18 10:57 4 mg ONETIME ONE Administration Departure - Departure Time of Disposition: 12:35 Disposition: Home, Self-Care 01 Clinical Impression: Nausea and vomiting Qualifiers: Vomiting type: unspecified Vomiting Intractability: non-intractable Qualified Code(s): R11.2 - Nausea with vomiting, unspecified Qualifiers: Weeks of gestation: 12 weeks Qualified Code(s): Z3A.12 - 12 weeks gestation of - Discharge Information Instructions: Hyperemesis Gravidarum, Nausea and Vomiting, Adult, [id number] Referrals: Marbella Ferraro MD [Primary Care Provider] - Forms: ED Department Discharge Additional Instructions: The following information is given to patients seen in the emergency department who are being discharged to home. This information is to outline your options for follow-up care. We provide all patients seen in our emergency department with a follow-up referral. The need for follow-up, as well as the timing and circumstances, are variable depending upon the specifics of your emergency department visit. If you don't have a primary care physician on staff, we will provide you with a referral. We always advise you to contact your personal physician following an emergency department visit to inform them of the circumstance of the visit and for follow-up with them and/or the need for any referrals to a consulting specialist. The emergency department will also refer you to a specialist when appropriate. This referral assures that you have the opportunity for follow-up care with a specialist. All of these measure are taken in an effort to provide you with optimal care, which includes your follow-up. Under all circumstances we always encourage you to contact your private physician who remains a resource for coordinating your care. When calling for follow-up care, please make the office aware that this follow-up is from your recent emergency room visit. If for any reason you are refused follow-up, please contact the [facility] Emergency Department at and asked to speak to the emergency department charge nurse. [facility] [address] [place] [address] [facility] [address] [place] [id number] [facility] [address] [place] [address] 1. Encourage small but frequent sips of fluids to prevent dehydration. 2. Follow-up with your MASTER CONTROL ENGINEER provider as scheduled and as discussed. Return to the ED as needed and as discussed. - My Orders Last 24 Hours: My Active Orders 12/20/18 10:57 Orthostatic Vital Signs [RC] ASDIRECTED - Assessment/Plan Last 24 Hours: My Active Orders 12/20/18 10:57 Orthostatic Vital Signs [RC] ASDIRECTED
[2018-12-20 11:50] LABS: BLOOD UREA NITROGEN,BUN 10 mg/dL (7.0-18.0); CHLORIDE,CL 98 mmol/L (98-107); GLUCOSE RANDOM 87 mg/dL (74-106); POTASSIUM,K 3.6 mmol/L (3.5-5.1); SODIUM,NA 133 mmol/L (136-145)
== END 2018-12-20 12:55 | disposition home or self-care (01) ==
LOC: MW.ED 10:42
DX: O21.9 Vomiting of pregnancy, unspecified (principal); Z3A.12 12 weeks gestation of pregnancy
CPT/HCPCS: 36415; 80053; 81003; 85025; 96361; 96374; 99284; J2405; J7040

== ENCOUNTER 2019-01-08 12:57 | Emergency (ER) | payer BC ==
[2019-01-08] MEDS ORDERED: Sodium Chloride 0.9% 2.5 ML Syringe FLUSH PRN (13:08)
[2019-01-08] MEDS ORDERED: Sodium Chloride 0.9% 10 ML Syringe FLUSH PRN (13:08)
[2019-01-08] MEDS ORDERED: Ondansetron 4 MG/2 ML SDV IVPUSH ONE (13:08)
[2019-01-08] MEDS ORDERED: Sodium Chloride 0.9% 1,000 ML IV ONE (13:08)
--- NOTE | 2019-01-08 13:08 | EDM.PDOC ---
ED HPI GENERAL MEDICAL PROBLEM - General Chief Complaint: Gastrointestinal Problem Stated Complaint: 15 WEEKS PREG-VOMITING Time Seen by Provider: 01/08/19 13:07 Source of Information: Reports: Patient History Limitations: Reports: No Limitations - History of Present Illness INITIAL COMMENTS - FREE TEXT/NARRATIVE: HISTORY AND PHYSICAL: History of present illness: Patient is a 28-year-old female 15 weeks gestation presents with complaint of vomiting. Patient has history of hyperemesis gravidarum and sees Dr. Ferraro. She takes oral anti-emetics as well as suppositories. She states today they are not helping and she has had at least 5 episodes of vomiting and not able to keep anything down. She denies fevers, chills, abdominal pain, vaginal bleeding or discharge. Review of systems: As per history of present illness and below otherwise all systems reviewed and negative. Past medical history: As per history of present illness and as reviewed below otherwise noncontributory. Surgical history: As per history of present illness and as reviewed below otherwise noncontributory. Social history: No reported history of drug or alcohol abuse. Family history: As per history of present illness and as reviewed below otherwise noncontributory. Physical exam: General: Patient sitting comfortably in no acute distress and nontoxic appearing HEENT: Atraumatic, normocephalic, pupils reactive, negative for conjunctival pallor or scleral icterus, mucous membranes moist, throat clear, neck supple, nontender, trachea midline. No meningeal signs. Lungs: Clear to auscultation, breath sounds equal bilaterally, chest nontender. Heart: S1S2, regular, negative for clicks, rubs, or overt murmur. Abdomen: Mild right lower quadrant tenderness to palpation. Gravid uterus felt 3cm below umbilicus. Soft, nondistended. Negative for masses or hepatosplenomegaly. Negative for costovertebral tenderness. No rigidity, rebound , guarding. Pelvis: Stable nontender. Genitourinary: Deferred. Rectal: Deferred. Extremities: Atraumatic, negative for cords or calf pain. Neurovascular unremarkable. Neuro: Awake, alert, oriented. Cranial nerves II through XII unremarkable. Cerebellum unremarkable. Motor and sensory unremarkable throughout. Exam nonfocal. Notes: Discussed with Dr. Lopez, she agreed to IV Rocephin here and discharge home on keflex with close follow up. Patient tolerating PO fluids. Diagnostics: CBC, CMP, UA Therapeutics: 1L NS IV 4mg Zofran IV 1g Rocephin IV Prescriptions: Keflex Impression: Vomiting in , UTI Definitive disposition and diagnosis as appropriate pending reevaluation and review of above. - Related Data Allergies Allergy/AdvReac Type Severity Reaction Status Date / Time No Known Allergies Allergy Verified 01/08/19 13:07 Home Meds: Home Meds Cholecalciferol (Vitamin D3) [Vitamin D3] 1,000 unit PO DAILY 03/09/17 [History] Mv-Mn/Iron/FA/Herbal/Digestive [ One Tablet] 1 tab PO DAILY 03/09/17 [ History] Ondansetron [Zofran ODT] 4 mg PO Q8HR 11/23/18 [History] Sertraline HCl [Zoloft] 100 mg PO BEDTIME 11/23/18 [History] Ondansetron [Zofran ODT] 4 mg PO Q6H PRN #10 tab.dis 01/08/19 [Rx] Promethazine [Phenergan] 1 tab RECTAL ASDIRECTED 01/08/19 [History] cephALEXin [Keflex] 500 mg PO BID 7 Days #14 cap 01/08/19 [Rx] Past Medical History HEENT History: Reports: None Cardiovascular History: Reports: None Respiratory History: Reports: None Gastrointestinal History: Reports: None Genitourinary History: Reports: None 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 , Musculoskeletal History: Reports: None Neurological History: Reports: None Psychiatric History: Reports: None Endocrine/Metabolic History: Reports: None Dermatologic History: Reports: None - Infectious Disease History Infectious Disease History: Reports: None - Past Surgical History HEENT Surgical History: Reports: None Female Surgical History: Reports: Other (See Below) Other Female Surgeries/Procedures: removal of left tube in 2016 Social & Family History - Family History Family Medical History: Noncontributory - Caffeine Use Caffeine Use: Reports: Coffee, Energy Drinks, Soda ED ROS GENERAL - Review of Systems Review Of Systems: ROS reveals no pertinent complaints other than HPI. ED EXAM - Physical Exam Exam: See Below (see dictation) Course - Vital Signs Last Recorded V/S: Last Vital Signs Temp 97.9 F 01/08/19 13:09 Pulse 84 01/08/19 15:48 Resp 18 01/08/19 15:48 BP 124/76 01/08/19 15:48 Pulse Ox 97 01/08/19 15:48 - Orders/Labs/Meds Orders: Active Orders 24 hr Category Date Time Status CULTURE URINE [RM] Stat Lab 01/08/19 13:21 Received Saline Lock Insert [OM.PC] Stat Oth 01/08/19 13:08 Ordered Labs: Laboratory Tests 01/08/19 01/08/19 01/08/19 Range/Units 13:21 13:30 13:30 WBC 11.86 H (4.0-11.0) K/uL RBC 3.59 L (4.30-5.90) M/uL Hgb 11.5 L (12.0-16.0) g/dL Hct 31.7 L (36.0-46.0) % MCV 88.3 (80.0-98.0) fL MCH 32.0 (27.0-32.0) pg MCHC 36.3 (31.0-37.0) g/dL RDW Std Deviation 40.1 (28.0-62.0) fl RDW Coeff of Caren 13 (11.0-15.0) % Plt Count 277 (150-400) K/uL MPV 10.50 (7.40-12.00) fL Neut % (Auto) 81.3 H (48.0-80.0) % Lymph % (Auto) 11.5 L (16.0-40.0) % [place] % (Auto) 6.4 (0.0-15.0) % Eos % (Auto) 0.5 (0.0-7.0) % Baso % (Auto) 0.3 (0.0-1.5) % Neut # (Auto) 9.7 H (1.4-5.7) K/uL Lymph # (Auto) 1.4 (0.6-2.4) K/uL [place] # (Auto) 0.8 (0.0-0.8) K/uL Eos # (Auto) 0.1 (0.0-0.7) K/uL Baso # (Auto) 0.0 (0.0-0.1) K/uL Nucleated RBC % 0.0 /100WBC Nucleated RBCs # 0 K/uL Sodium 138 (136-145) mmol/L Potassium 3.7 (3.5-5.1) mmol/L Chloride 102 (98-107) mmol/L Carbon Dioxide 22.0 (21.0-32.0) mmol/L BUN 4 L (7.0-18.0) mg/dL Creatinine 0.7 (0.6-1.0) mg/dL Est Cr Clr Drug Dosing 102.40 mL/min Estimated GFR (MDRD) > 60.0 ml/min Glucose 78 (74-106) mg/dL Calcium 9.4 (8.5-10.1) mg/dL Total Bilirubin 0.6 (0.2-1.0) mg/dL AST 14 L (15-37) IU/L ALT 21 (14-63) IU/L Alkaline Phosphatase 49 (46-116) U/L Total Protein 7.7 (6.4-8.2) g/dL Albumin 3.7 (3.4-5.0) g/dL Globulin 4.0 (2.6-4.0) g/dL Albumin/Globulin Ratio 0.9 (0.9-1.6) Urine Color DARK YELLOW Urine Appearance HAZY Urine pH 6.0 (5.0-8.0) Ur Specific [employer] 1.020 (1.001-1.035) Urine Protein TRACE H (NEGATIVE) mg/dL Urine Glucose (UA) NEGATIVE (NEGATIVE) mg/dL Urine Ketones >=80 (NEGATIVE) mg/dL Urine Occult Blood NEGATIVE (NEGATIVE) Urine Nitrite NEGATIVE (NEGATIVE) Urine Bilirubin SMALL H (NEGATIVE) Urine Ictotest POSITIVE Urine Urobilinogen 1.0 (<2.0) EU/dL Ur Leukocyte Esterase TRACE H (NEGATIVE) Urine RBC RARE (0-2/HPF) Urine WBC 2-4 (0-5/HPF) Ur Epithelial Cells MANY (NONE-FEW) Urine Bacteria 1+ H (NEGATIVE) Urine Mucus MODERATE (NONE-MOD) Meds: Medications Discontinued Medications Generic Name Dose Route Start Last Admin Trade Name Freq PRN Reason Stop Dose Admin Sodium Chloride 1,000 mls @ 999 mls/hr 01/08/19 13:08 01/08/19 13:40 Normal Saline IV 01/08/19 14:08 999 mls/hr STAT ONE Administration Ceftriaxone Sodium/Dextrose 1 50 mls @ 100 mls/hr 01/08/19 14:24 01/08/19 14: 37 gm/ Premix IV 01/08/19 14:53 100 mls/hr ONETIME ONE Administration Ondansetron HCl 4 mg 01/08/19 13:08 01/08/19 13:40 Zofran IVPUSH 01/08/19 13:09 4 mg ONETIME ONE Administration Sodium Chloride 10 ml 01/08/19 13:08 01/08/19 13:41 Saline Flush FLUSH 10 ml ASDIRECTED PRN Administration Keep Vein Open Sodium Chloride 2.5 ml 01/08/19 13:08 01/08/19 13:41 Saline Flush FLUSH 2.5 ml ASDIRECTED PRN Administration Keep Vein Open Departure - Departure Time of Disposition: 15:36 Disposition: Home, Self-Care 01 Condition: Good Clinical Impression: Vomiting during , UTI (urinary tract infection) - Discharge Information Prescriptions: cephALEXin [Keflex] 500 mg PO BID 7 Days #14 cap Instructions: Urinary Tract Infection, Adult, [id number] Referrals: Marbella Ferraro MD [Primary Care Provider] - Forms: ED Department Discharge Additional Instructions: The following information is given to patients seen in the emergency department who are being discharged to home. This information is to outline your options for follow-up care. We provide all patients seen in our emergency department with a follow-up referral. The need for follow-up, as well as the timing and circumstances, are variable depending upon the specifics of your emergency department visit. If you don't have a primary care physician on staff, we will provide you with a referral. We always advise you to contact your personal physician following an emergency department visit to inform them of the circumstance of the visit and for follow-up with them and/or the need for any referrals to a consulting specialist. The emergency department will also refer you to a specialist when appropriate. This referral assures that you have the opportunity for follow-up care with a specialist. All of these measure are taken in an effort to provide you with optimal care, which includes your follow-up. Under all circumstances we always encourage you to contact your private physician who remains a resource for coordinating your care. When calling for follow-up care, please make the office aware that this follow-up is from your recent emergency room visit. If for any reason you are refused follow-up, please contact the [facility] at and asked to speak to the emergency department charge nurse. [facility] [address] [place] [address] [address] Drink plenty of fluids and take antibiotic as directed. 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
[2019-01-08 14:05] LABS: BLOOD UREA NITROGEN,BUN 4 mg/dL (7.0-18.0); CHLORIDE,CL 102 mmol/L (98-107); GLUCOSE RANDOM 78 mg/dL (74-106); POTASSIUM,K 3.7 mmol/L (3.5-5.1); SODIUM,NA 138 mmol/L (136-145)
[2019-01-08] MEDS ORDERED: cefTRIAXone 1 GM in Premix Bag 1 BAG IV ONE (14:24)
== END 2019-01-08 15:52 | disposition home or self-care (01) ==
LOC: MW.ED 12:57
DX: O21.9 Vomiting of pregnancy, unspecified (principal); O23.42 Unspecified infection of urinary tract in pregnancy, second trimester; Z3A.15 15 weeks gestation of pregnancy
CPT/HCPCS: 36415; 80053; 81001; 85025; 87086; 96361; 96365; 96375; 99283; J0696; J2405; J7040

== ENCOUNTER 2019-01-12 15:11 | Emergency (ER) | payer BC ==
[2019-01-12] MEDS ORDERED: Sodium Chloride 0.9% 10 ML Syringe FLUSH PRN (15:35)
[2019-01-12] MEDS ORDERED: Sodium Chloride 0.9% 2.5 ML Syringe FLUSH PRN (15:35)
[2019-01-12] MEDS ORDERED: Famotidine 20 MG/2 ML SDV IVPUSH ONE (15:35)
[2019-01-12] MEDS ORDERED: Ondansetron 4 MG/2 ML SDV IVPUSH ONE (15:35)
[2019-01-12] MEDS ORDERED: Sodium Chloride 0.9% 1,000 ML IV ONE ×2 (15:35→16:57)
--- NOTE | 2019-01-12 15:40 | EDM.PDOC ---
ED HPI GENERAL MEDICAL PROBLEM - General Chief Complaint: Gastrointestinal Problem Stated Complaint: DEHYDRATION/NAUSEA Time Seen by Provider: 01/12/19 15:15 - History of Present Illness INITIAL COMMENTS - FREE TEXT/NARRATIVE: HISTORY AND PHYSICAL: History of present illness: The patient is a 28-year-old patient who is a 3 para 0, with a history of 2 prior ectopics, who is about 15-16 weeks and who has had hyperemesis gravidarum throughout this with multiple ER visits including November 23, December 20, and 4 days ago on January 08 for similar symptoms of nausea and vomiting and presents with same. She says that at about 4 :00 this morning she started having the nausea and vomiting and she was unable to control it with the Zofran that she has and the Phenergan suppositories. She was prescribed prednisone by her OB Selma Head and she says this symptoms are still happening. She only has abdominal pain secondary to the vomiting and she's not had diarrhea or urinary complaints. She's had no fever chills or upper respiratory symptoms and no vaginal bleeding or vaginal discharge. She says that today's presentation is similar to her prior visits and that the IV fluids to tide her over but then the vomiting will return. Review of systems: As per history of present illness and below otherwise all systems reviewed and negative. Past medical history: As per history of present illness and as reviewed below otherwise noncontributory. Surgical history: As per history of present illness and as reviewed below otherwise noncontributory. Social history: No reported history of drug or alcohol abuse. Family history: As per history of present illness and as reviewed below otherwise noncontributory. Physical exam: General: Well-developed well-nourished female who is nontoxic and vital signs are by me. Her lips are dry but her mucous membranes are just HEENT: Atraumatic, normocephalic, negative for conjunctival pallor or scleral icterus, mucous membranes tacky, throat clear, neck supple, nontender, trachea midline. Lungs: Clear to auscultation, breath sounds equal bilaterally, chest nontender. Heart: S1S2, regular rate and rhythm on my evaluation and no overt murmurs Abdomen: Soft, nondistended, nontender. Uterus is appreciated just below the umbilicus and is nontender Negative for masses or hepatosplenomegaly. Negative for costovertebral tenderness. Pelvis: Stable nontender. Genitourinary: Deferred. Rectal: Deferred. Extremities: Atraumatic, negative for cords or calf pain. Neurovascular unremarkable. Neuro: Awake, alert, oriented. Cranial nerves II through XII unremarkable. Cerebellum unremarkable. Motor and sensory unremarkable throughout. Exam nonfocal. Diagnostics: CBC CMP UA with reflex Therapeutics: IV fluids Zofran Pepcid and Reglan Benadryl 1724: Case was discussed with Dr. Harris who is on-call for Dr. Ferraro; as the patient is interested in having a popsicle and is starting to feel better and is currently receiving her second liter of fluids as well as Reglan and Benadryl she would like to try to get the patient discharged home to utilize the tools she has at home and to allow the prednisone to start working. She would like the patient to call the clinic in the morning and they can arrange for outpatient therapy going forward. I will discussed this conversation with the patient She overall looks better as far as her coloring and mucous membranes. She is comfortable with receiving the fluids and planning on going home with follow-up mostly in the clinic. Pt is feeling better and wants to go home Impression: exacerbation of hyperemesis gravidarum Definitive disposition and diagnosis as appropriate pending reevaluation and review of above. - Related Data Allergies Allergy/AdvReac Type Severity Reaction Status Date / Time No Known Allergies Allergy Verified 01/12/19 15:30 Home Meds: Home Meds Cholecalciferol (Vitamin D3) [Vitamin D3] 1,000 unit PO DAILY 03/09/17 [History] Mv-Mn/Iron/FA/Herbal/Digestive [ One Tablet] 1 tab PO DAILY 03/09/17 [ History] Ondansetron [Zofran ODT] 4 mg PO Q8HR 11/23/18 [History] Sertraline HCl [Zoloft] 100 mg PO BEDTIME 11/23/18 [History] Ondansetron [Zofran ODT] 4 mg PO Q6H PRN #10 tab.dis 01/08/19 [Rx] Promethazine [Phenergan] 1 tab RECTAL ASDIRECTED 01/08/19 [History] predniSONE [Prednisone] 40 mg PO ASDIRECTED 01/12/19 [History] Past Medical History HEENT History: Reports: None Cardiovascular History: Reports: None Respiratory History: Reports: None Gastrointestinal History: Reports: None Genitourinary History: Reports: None 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 , Musculoskeletal History: Reports: None Neurological History: Reports: None Psychiatric History: Reports: None Endocrine/Metabolic History: Reports: None Hematologic History: Reports: None Immunologic History: Reports: None Oncologic (Cancer) History: Reports: None Dermatologic History: Reports: None - Infectious Disease History Infectious Disease History: Reports: None - Past Surgical History HEENT Surgical History: Reports: None Female Surgical History: Reports: Other (See Below) Other Female Surgeries/Procedures: removal of left tube in 2016 Social & Family History - Family History Family Medical History: Noncontributory - Tobacco Use Smoking Status *Q: Never Smoker Second Hand Smoke Exposure: No - Caffeine Use Caffeine Use: Reports: None - Recreational Drug Use Recreational Drug Use: No ED ROS GENERAL - Review of Systems Review Of Systems: Comprehensive ROS is negative, except as noted in HPI. ED EXAM, GENERAL - Physical Exam Exam: See Below (see Dictation) Course - Vital Signs Last Recorded V/S: Last Vital Signs Temp 36.3 C 01/12/19 15:25 Pulse 92 01/12/19 17:30 Resp 14 01/12/19 17:30 BP 107/70 01/12/19 17:30 Pulse Ox 100 01/12/19 17:30 - Orders/Labs/Meds Orders: Active Orders 24 hr Category Date Time Status CULTURE URINE [RM] Stat Lab 01/12/19 15:30 Received Sodium Chloride 0.9% [Saline Flush] Med 01/12/19 15:35 Active 10 ml FLUSH ASDIRECTED PRN Sodium Chloride 0.9% [Saline Flush] Med 01/12/19 15:35 Active 2.5 ml FLUSH ASDIRECTED PRN Saline Lock Insert [OM.PC] Stat Oth 01/12/19 15:35 Ordered Medication Orders Sodium Chloride (Saline Flush) 10 ml FLUSH ASDIRECTED PRN PRN Reason: Keep Vein Open Sodium Chloride (Saline Flush) 2.5 ml FLUSH ASDIRECTED PRN PRN Reason: Keep Vein Open Labs: Laboratory Tests 01/12/19 01/12/19 01/12/19 Range/Units 15:30 15:50 15:50 WBC 10.83 (4.0-11.0) K/uL RBC 3.77 L (4.30-5.90) M/uL Hgb 12.0 (12.0-16.0) g/dL Hct 32.6 L (36.0-46.0) % MCV 86.5 (80.0-98.0) fL MCH 31.8 (27.0-32.0) pg MCHC 36.8 (31.0-37.0) g/dL RDW Std Deviation 38.9 (28.0-62.0) fl RDW Coeff of Caren 12 (11.0-15.0) % Plt Count 310 (150-400) K/uL MPV 11.20 (7.40-12.00) fL Neut % (Auto) 93.6 H (48.0-80.0) % Lymph % (Auto) 5.4 L (16.0-40.0) % [place] % (Auto) 1.0 (0.0-15.0) % Eos % (Auto) 0.0 (0.0-7.0) % Baso % (Auto) 0.0 (0.0-1.5) % Neut # (Auto) 10.1 H (1.4-5.7) K/uL Lymph # (Auto) 0.6 (0.6-2.4) K/uL [place] # (Auto) 0.1 (0.0-0.8) K/uL Eos # (Auto) 0.0 (0.0-0.7) K/uL Baso # (Auto) 0.0 (0.0-0.1) K/uL Nucleated RBC % 0.0 /100WBC Nucleated RBCs # 0 K/uL Sodium 133 L (136-145) mmol/L Potassium 3.8 (3.5-5.1) mmol/L Chloride 97 L (98-107) mmol/L Carbon Dioxide 18.5 L (21.0-32.0) mmol/L BUN 8 (7.0-18.0) mg/dL Creatinine 0.8 (0.6-1.0) mg/dL Est Cr Clr Drug Dosing 89.60 mL/min Estimated GFR (MDRD) > 60.0 ml/min Glucose 114 H (74-106) mg/dL Calcium 9.8 (8.5-10.1) mg/dL Total Bilirubin 1.3 H (0.2-1.0) mg/dL AST 37 (15-37) IU/L ALT 43 (14-63) IU/L Alkaline Phosphatase 66 (46-116) U/L Total Protein 8.1 (6.4-8.2) g/dL Albumin 3.8 (3.4-5.0) g/dL Globulin 4.3 H (2.6-4.0) g/dL Albumin/Globulin Ratio 0.9 (0.9-1.6) Urine Color DARK YELLOW Urine Appearance CLEAR Urine pH 5.5 (5.0-8.0) Ur Specific [place] 1.020 (1.001-1.035) Urine Protein TRACE H (NEGATIVE) mg/dL Urine Glucose (UA) NEGATIVE (NEGATIVE) mg/dL Urine Ketones >=80 (NEGATIVE) mg/dL Urine Occult Blood NEGATIVE (NEGATIVE) Urine Nitrite NEGATIVE (NEGATIVE) Urine Bilirubin NEGATIVE (NEGATIVE) Urine Urobilinogen 2.0 H (<2.0) EU/dL Ur Leukocyte Esterase TRACE H (NEGATIVE) Urine RBC 0-1 (0-2/HPF) Urine WBC 0-3 (0-5/HPF) Ur Epithelial Cells FEW (NONE-FEW) Urine Bacteria FEW (NEGATIVE) Meds: Medications Generic Name Dose Route Start Last Admin Trade Name Kayla PRN Reason Stop Dose Admin Sodium Chloride 10 ml 01/12/19 15:35 Saline Flush FLUSH ASDIRECTED PRN Keep Vein Open Sodium Chloride 2.5 ml 01/12/19 15:35 Saline Flush FLUSH ASDIRECTED PRN Keep Vein Open Discontinued Medications Generic Name Dose Route Start Last Admin Trade Name Freq PRN Reason Stop Dose Admin Diphenhydramine HCl 25 mg 01/12/19 16:58 01/12/19 17:28 Benadryl IVPUSH 01/12/19 16:59 25 mg ONETIME ONE Administration Famotidine 20 mg 01/12/19 15:35 01/12/19 15:51 Pepcid IVPUSH 01/12/19 15:36 20 mg ONETIME ONE Administration Sodium Chloride 1,000 mls @ 999 mls/hr 01/12/19 15:35 01/12/19 15:44 Normal Saline IV 01/12/19 16:35 999 mls/hr STAT ONE Administration Sodium Chloride 1,000 mls @ 999 mls/hr 01/12/19 16:57 01/12/19 17:23 Normal Saline IV 01/12/19 17:57 999 mls/hr STAT ONE Administration Metoclopramide HCl 10 mg 01/12/19 16:58 01/12/19 17:24 Reglan IV 01/12/19 16:59 10 mg ONETIME ONE Administration Ondansetron HCl 4 mg 01/12/19 15:35 01/12/19 15:49 Zofran IVPUSH 01/12/19 15:36 4 mg ONETIME ONE Administration Departure - Departure Time of Disposition: 18:57 Disposition: Home, Self-Care 01 Condition: Fair Clinical Impression: Hyperemesis gravidarum - Discharge Information Referrals: Marbella Ferraro MD [Primary Care Provider] - Forms: ED Department Discharge Additional Instructions: The following information is given to patients seen in the emergency department who are being discharged to home. This information is to outline your options for follow-up care. We provide all patients seen in our emergency department with a follow-up referral. The need for follow-up, as well as the timing and circumstances, are variable depending upon the specifics of your emergency department visit. If you don't have a primary care physician on staff, we will provide you with a referral. We always advise you to contact your personal physician following an emergency department visit to inform them of the circumstance of the visit and for follow-up with them and/or the need for any referrals to a consulting specialist. The emergency department will also refer you to a specialist when appropriate. This referral assures that you have the opportunity for followup care with a specialist. All of these measure are taken in an effort to provide you with optimal care, which includes your followup. Under all circumstances we always encourage you to contact your private physician who remains a resource for coordinating your care. When calling for followup care, please make the office aware that this follow-up is from your recent emergency room visit. If for any reason you are refused follow-up, please contact the [facility] emergency department at and ask to speak to the emergency department charge nurse. [address] [address] Eat ice chips and legs of popsicle and small sips of clear fluids. Use the medication you have for nausea and vomiting as prescribed to him by your provider and call the clinic in the morning and check in with them to see what the care plan will be going forward. Return to ER as needed and as discussed - My Orders Last 24 Hours: My Active Orders 01/12/19 15:30 CULTURE URINE [RM] Stat 01/12/19 15:35 Sodium Chloride 0.9% [Saline Flush] 10 ml FLUSH ASDIRECTED PRN Sodium Chloride 0.9% [Saline Flush] 2.5 ml FLUSH ASDIRECTED PRN Saline Lock Insert [OM.PC] Stat - Assessment/Plan Last 24 Hours: My Active Orders 01/12/19 15:30 CULTURE URINE [RM] Stat 01/12/19 15:35 Sodium Chloride 0.9% [Saline Flush] 10 ml FLUSH ASDIRECTED PRN Sodium Chloride 0.9% [Saline Flush] 2.5 ml FLUSH ASDIRECTED PRN Saline Lock Insert [OM.PC] Stat
[2019-01-12 16:44] LABS: BLOOD UREA NITROGEN,BUN 8 mg/dL (7.0-18.0); CARBON DIOXIDE,CO2 18.5 mmol/L (21.0-32.0); CHLORIDE,CL 97 mmol/L (98-107); GLUCOSE RANDOM 114 mg/dL (74-106); POTASSIUM,K 3.8 mmol/L (3.5-5.1); SODIUM,NA 133 mmol/L (136-145)
[2019-01-12] MEDS ORDERED: diphenhydrAMINE 50 MG/ML SDV IVPUSH ONE (16:58)
[2019-01-12] MEDS ORDERED: Metoclopramide 10 MG/2 ML SDV IV ONE (16:58)
== END 2019-01-12 19:06 | disposition home or self-care (01) ==
LOC: MW.ED 15:11
DX: O21.0 Mild hyperemesis gravidarum (principal); Z3A.15 15 weeks gestation of pregnancy; Z79.899 Other long term (current) drug therapy
CPT/HCPCS: 36415; 80053; 81001; 85025; 87086; 96361; 96374; 96375; 99283; J1200; J2405; J2765; J7040; S0028; 99284; J3490; J7030

== ENCOUNTER 2019-01-14 11:45 | Inpatient (IN) | payer BC ==
[2019-01-14] MEDS: Ondansetron 4 MG/2 ML SDV IVPUSH PRN ×2 (13:25→19:02)
[2019-01-14] MEDS ORDERED: Sodium Chloride 0.9% 10 ML Syringe FLUSH PRN (13:41)
[2019-01-14] MEDS ORDERED: Sodium Chloride 0.9% 2.5 ML Syringe FLUSH PRN (13:41)
[2019-01-14] MEDS ORDERED: Sodium Chloride 0.9% 10 ML SDV IV PRN (13:41)
[2019-01-14] MEDS: D5 1/2 NS w/ 20 mEq/L KCl 1,000 ML IV SCH ×2 (17:11→23:59)
[2019-01-14] MEDS: Sucralfate Suspension 1 GM/10 ML Cup PO PRN ×2 (17:31→23:59)
--- NOTE | 2019-01-14 17:34 | PCM.LDHP ---
L&D History of Present Illness - General Date of Service: 01/14/19 Admit Problem/Dx: Patient Status Order with Admit Dx/Problem 01/14/19 13:42 Patient Status [ADT] Routine Admission Diagnosis/Problem Admission Diagnosis/Problem 01/14/19 17:29 Hyperemesis Hypokalemia Abnormal LFTs Source of Information: Patient History Limitations: Reports: No Limitations - History of Present Illness Introduction:: 28 yo at 16 weeks GA who presented for outpatient iv fluids due to hyperemesis gravidarum. Received fluids and labs drawn, which indicated hypokalemia and mildly elevated LFTs--thus given these findings admitted for observation She has just started steroids in addition to the remainder of her antiemetic regimen> She has been having difficulty keeping the steroid pills down though. She did have some coffee ground appearing emesis this morning. No hematemesis. - Related Data Allergies/Adverse Reactions: Allergies Allergy/AdvReac Type Severity Reaction Status Date / Time No Known Allergies Allergy Verified 01/12/19 15:30 Home Medications: Home Meds Cholecalciferol (Vitamin D3) [Vitamin D3] 1,000 unit PO DAILY 03/09/17 [History] Mv-Mn/Iron/FA/Herbal/Digestive [ One Tablet] 1 tab PO DAILY 03/09/17 [ History] Ondansetron [Zofran ODT] 4 mg PO Q8HR 11/23/18 [History] Sertraline HCl [Zoloft] 100 mg PO BEDTIME 11/23/18 [History] Ondansetron [Zofran ODT] 4 mg PO Q6H PRN #10 tab.dis 01/08/19 [Rx] Promethazine [Phenergan] 1 tab RECTAL ASDIRECTED 01/08/19 [History] predniSONE [Prednisone] 40 mg PO ASDIRECTED 01/12/19 [History] Past Medical History HEENT History: Reports: Impaired Vision Other HEENT History: wears glasses, but did not bring Cardiovascular History: Reports: None Respiratory History: Reports: None Gastrointestinal History: Reports: None Genitourinary History: Reports: None [employer] History: Reports: Ectopic , Musculoskeletal History: Reports: None Neurological History: Reports: None Psychiatric History: Reports: Depression Endocrine/Metabolic History: Reports: None Hematologic History: Reports: None Immunologic History: Reports: None Oncologic (Cancer) History: Reports: None Dermatologic History: Reports: None - Infectious Disease History Infectious Disease History: Reports: Chicken Pox - Past Surgical History Head Surgeries/Procedures: Reports: None HEENT Surgical History: Reports: Other (See Below) Other HEENT Surgeries/Procedures: eustachian tubes as a child Female Surgical History: Reports: Other (See Below) Other Female Surgeries/Procedures: removal of left tube in 2016 Social & Family History - Family History Family Medical History: Noncontributory - Caffeine Use Caffeine Use: Reports: Coffee, Soda, Tea H&P Review of Systems - Review of Systems: Review Of Systems: Comprehensive ROS is negative, except as noted in HPI. General: Reports: Weakness, Fatigue, Decreased Appetite, Weight Loss. Denies: Fever, Chills, Malaise HEENT: Reports: No Symptoms Pulmonary: Reports: No Symptoms Cardiovascular: Reports: No Symptoms Gastrointestinal: Reports: Nausea, Vomiting Genitourinary: Reports: No Symptoms Musculoskeletal: Reports: No Symptoms Skin: Reports: No Symptoms Psychiatric: Reports: No Symptoms Neurological: Reports: No Symptoms Hematologic/Lymphatic: Reports: No Symptoms Immunologic: Reports: No Symptoms L&D Exam - Exam Exam: See Below - Vital Signs Vital Signs: Last Vital Signs Temp 36.6 C 01/14/19 11:49 Pulse 76 01/14/19 11:49 Resp 16 01/14/19 11:49 BP 118/67 01/14/19 11:49 Pulse Ox 98 01/14/19 11:49 - Exam General: Alert, Oriented Neck: Supple, Trachea Midline Lungs: Normal Respiratory Effort Cardiovascular: Regular Rate, Regular Rhythm GI/Abdominal Exam: Normal Bowel Sounds, Soft, Non-Tender, No Distention Back Exam: Normal Inspection. No: CVA Tenderness (L), CVA Tenderness (R) Extremities: Normal Range of Motion, Non-Tender, No Pedal Edema, Normal Capillary Refill Skin: Dry, Intact, Cool Neurological: Cranial Nerves Intact, Reflexes Equal Bilateral Psychiatric: Alert, Normal Affect - Problem List (1) Hyperemesis gravidarum SNOMED Code(s): 73537204 ICD Code: O21.0 - MILD HYPEREMESIS GRAVIDARUM Status: Acute Priority: High Current Visit: Yes (2) Hypokalemia SNOMED Code(s): 71552044 ICD Code: E87.6 - HYPOKALEMIA Status: Acute Current Visit: Yes Problem List Initiated/Reviewed/Updated: Yes Orders Last 24hrs: Active Orders 24 hr Category Date Time Status Patient Status [ADT] Routine ADT 01/14/19 13:42 Active Heart Tones [RC] ASDIRECTED Care 01/14/19 13:49 Active Up ad Meghna [RC] ASDIRECTED Care 01/14/19 13:42 Active Vital Signs [RC] PER UNIT ROUTINE Care 01/14/19 13:42 Active Regular Diet [DIET] Diet 01/14/19 Dinner Active COMPREHENSIVE METABOLIC PN,CMP [CHEM] AM Lab 01/15/19 05:11 Ordered UA W/O MICROSCOPIC [URIN] Routine Lab 01/14/19 18:00 Ordered D5 1/2 NS w/ 20 mEq/L KCl 1,000 ml Med 01/14/19 14:00 Active IV ASDIRECTED Ondansetron [Zofran] Med 01/14/19 13:41 Active 4 mg IVPUSH Q4H PRN Promethazine [Phenergan] Med 01/14/19 13:49 Active 12.5 mg IM Q6H PRN Sodium Chloride 0.9% [Normal Saline] Med 01/14/19 13:41 Active 10 ml IV ASDIRECTED PRN Sodium Chloride 0.9% [Saline Flush] Med 01/14/19 13:41 Active 10 ml FLUSH ASDIRECTED PRN Sodium Chloride 0.9% [Saline Flush] Med 01/14/19 13:41 Active 2.5 ml FLUSH ASDIRECTED PRN Sucralfate [Carafate] Med 01/14/19 13:49 Active 1 gm PO Q6H PRN Peripheral IV Insertion Adult [OM.PC] Urgent Oth 01/14/19 13:41 Ordered Resuscitation Status Routine Resus Stat 01/14/19 13:41 Ordered Medication Orders Potassium Chloride/Dextrose/Sod Cl (D5 1/2 Ns W/ 20 Meq/L Kcl) 1,000 mls @ 150 mls/hr IV ASDIRECTED [facility] Ondansetron HCl (Zofran) 4 mg IVPUSH Q4H PRN PRN Reason: Nausea/Vomiting Last Admin: 01/14/19 13:25 Dose: 4 mg Promethazine HCl (Phenergan) 12.5 mg IM Q6H PRN PRN Reason: Nausea Sodium Chloride (Saline Flush) 10 ml FLUSH ASDIRECTED PRN PRN Reason: Keep Vein Open Sodium Chloride (Saline Flush) 2.5 ml FLUSH ASDIRECTED PRN PRN Reason: Keep Vein Open Sodium Chloride (Normal Saline) 10 ml IV ASDIRECTED PRN PRN Reason: IV Use Sucralfate (Carafate) 1 gm PO Q6H PRN PRN Reason: heartburn/reflux Assessment/Plan Comment:: Hyperemesis gravidarum Hypokalemia Mildly elevated LFTs\ Patient is admitted for observation, received iv steroids this am. Will supplement potassium via iv and continue with iv antiemetics. Repeat UA this evening to assess for ketones and CMP in the morning. FHTs dopplered each shift. Patient agrees to plan of care.
[2019-01-14] MEDS: Promethazine 25 MG/ML SDV IM PRN (22:51)
[2019-01-15] MEDS: Promethazine 25 MG/ML SDV IM PRN (05:42)
[2019-01-15 06:09] LABS: BLOOD UREA NITROGEN,BUN 2 mg/dL (7.0-18.0); CARBON DIOXIDE,CO2 22.7 mmol/L (21.0-32.0); CHLORIDE,CL 103 mmol/L (98-107); GLUCOSE RANDOM 117 mg/dL (74-106); POTASSIUM,K 2.9 mmol/L (3.5-5.1); SODIUM,NA 135 mmol/L (136-145)
[2019-01-15] MEDS: D5 1/2 NS w/ 20 mEq/L KCl 1,000 ML IV SCH (06:48)
[2019-01-15] MEDS ORDERED: methylPREDNISolone Sodium Succinate 40 MG/1 ML SDV IV ONE (09:00)
--- NOTE | 2019-01-15 10:11 | PCM.PN ---
- General Info Date of Service: 01/15/19 Functional Status: Reports: Ambulating, Urinating - Review of Systems General: Reports: Fatigue. Denies: Fever Pulmonary: Reports: No Symptoms Cardiovascular: Reports: No Symptoms Gastrointestinal: Reports: Decreased Appetite, Nausea, Vomiting Genitourinary: Reports: No Symptoms Musculoskeletal: Reports: No Symptoms Skin: Reports: No Symptoms Neurological: Reports: No Symptoms Psychiatric: Reports: No Symptoms - Patient Data Vitals - Most Recent: Last Vital Signs Temp 36.9 C 01/15/19 07:28 Pulse 75 01/15/19 07:28 Resp 14 01/15/19 07:28 BP 124/67 01/15/19 07:28 Pulse Ox 98 01/15/19 07:28 Weight - Most Recent: 63.14 kg I&O - Last 24 Hours: Intake & Output 01/14/19 01/15/19 01/15/19 22:59 06:59 14:59 Intake Total 20 1950 Output Total 600 675 400 Balance -580 1275 -400 Lab Results Last 24 Hours: Laboratory Results - last 24 hr 01/14/19 01/15/19 Range/Units 18:00 05:40 Sodium 135 L (136-145) mmol/L Potassium 2.9 L (3.5-5.1) mmol/L Chloride 103 (98-107) mmol/L Carbon Dioxide 22.7 (21.0-32.0) mmol/L BUN 2 L (7.0-18.0) mg/dL Creatinine 0.6 (0.6-1.0) mg/dL Est Cr Clr Drug Dosing 120.33 mL/min Estimated GFR (MDRD) > 60.0 ml/min Glucose 117 H (74-106) mg/dL Calcium 8.1 L (8.5-10.1) mg/dL Total Bilirubin 0.9 (0.2-1.0) mg/dL AST 64 H (15-37) IU/L ALT 97 H (14-63) IU/L Alkaline Phosphatase 46 (46-116) U/L Total Protein 5.7 L (6.4-8.2) g/dL Albumin 2.7 L (3.4-5.0) g/dL Globulin 3.0 (2.6-4.0) g/dL Albumin/Globulin Ratio 0.9 (0.9-1.6) Urine Color YELLOW Urine Appearance SLT CLOUDY Urine pH 6.0 (5.0-8.0) Ur Specific [place] 1.025 (1.001-1.035) Urine Protein NEGATIVE (NEGATIVE) mg/dL Urine Glucose (UA) NEGATIVE (NEGATIVE) mg/dL Urine Ketones >=80 (NEGATIVE) mg/dL Urine Occult Blood NEGATIVE (NEGATIVE) Urine Nitrite NEGATIVE (NEGATIVE) Urine Bilirubin SMALL H (NEGATIVE) Urine Urobilinogen 1.0 (<2.0) EU/dL Ur Leukocyte Esterase NEGATIVE (NEGATIVE) Med Orders - Current: Current Medications Calcium Gluconate (Calcium Gluconate) 1 gm IV Q6HR ONE Stop: 01/15/19 12:01 Potassium Chloride/Dextrose/Sod Cl (D5 1/2 Ns W/ 20 Meq/L Kcl) 1,000 mls @ 150 mls/hr IV ASDIRECTED [facility] Last Admin: 01/15/19 06:48 Dose: 150 mls/hr Potassium Chloride/Dextrose/Sod Cl (D5 1/2 Ns W/ 40 Meq/L Kcl) 1,000 mls @ 150 mls/hr IV ASDIRECTED [facility] Magnesium Oxide (Magnesium Oxide) 800 mg PO DAILY [facility] Metoclopramide HCl (Reglan) 10 mg IVPUSH Q6H PRN PRN Reason: Nausea Ondansetron HCl (Zofran) 4 mg IVPUSH Q4H PRN PRN Reason: Nausea/Vomiting Last Admin: 01/14/19 19:02 Dose: 4 mg Promethazine HCl (Phenergan) 12.5 mg IM Q6H PRN PRN Reason: Nausea Last Admin: 01/15/19 05:42 Dose: 12.5 mg Sodium Chloride (Saline Flush) 10 ml FLUSH ASDIRECTED PRN PRN Reason: Keep Vein Open Sodium Chloride (Saline Flush) 2.5 ml FLUSH ASDIRECTED PRN PRN Reason: Keep Vein Open Sodium Chloride (Normal Saline) 10 ml IV ASDIRECTED PRN PRN Reason: IV Use Sucralfate (Carafate) 1 gm PO Q6H PRN PRN Reason: heartburn/reflux Last Admin: 01/14/19 23:59 Dose: 1 gm Discontinued Medications Methylprednisolone Sodium Succinate (Solu-Medrol) 16 mg IV ASDIRECTED ONE Stop: 01/15/19 09:01 Last Admin: 01/15/19 09:32 Dose: 16 mg - Exam General: Alert, Oriented Neck: Supple Lungs: Clear to Auscultation, Normal Respiratory Effort Cardiovascular: Regular Rate, Regular Rhythm GI/Abdominal Exam: Normal Bowel Sounds, Soft, Non-Tender, No Distention. No: Guarding Extremities: Normal Capillary Refill. No: Pedal Edema, Beth's Sign Skin: Warm, Dry, Intact Neurological: No New Focal Deficit Psy/Mental Status: Alert, Normal Affect - Problem List & Annotations (1) Hyperemesis gravidarum SNOMED Code(s): 76998373 Code(s): O21.0 - MILD HYPEREMESIS GRAVIDARUM Status: Acute Priority: High Current Visit: Yes (2) Hypokalemia SNOMED Code(s): 17145674 Code(s): E87.6 - HYPOKALEMIA Status: Acute Current Visit: Yes - Problem List Review Problem List Initiated/Reviewed/Updated: Yes - My Orders Last 24 Hours: My Active Orders 01/14/19 13:41 Ondansetron [Zofran] 4 mg IVPUSH Q4H PRN Sodium Chloride 0.9% [Normal Saline] 10 ml IV ASDIRECTED PRN Sodium Chloride 0.9% [Saline Flush] 10 ml FLUSH ASDIRECTED PRN Sodium Chloride 0.9% [Saline Flush] 2.5 ml FLUSH ASDIRECTED PRN Peripheral IV Insertion Adult [OM.PC] Urgent Resuscitation Status Routine 01/14/19 13:42 Patient Status [ADT] Routine Up ad Meghna [RC] ASDIRECTED Vital Signs [RC] PER UNIT ROUTINE 01/14/19 13:49 Heart Tones [RC] Q12H Promethazine [Phenergan] 12.5 mg IM Q6H PRN Sucralfate [Carafate] 1 gm PO Q6H PRN 01/14/19 14:00 D5 1/2 NS w/ 20 mEq/L KCl 1,000 ml IV ASDIRECTED 01/14/19 Dinner Regular Diet [DIET] 01/15/19 09:45 D5 1/2 NS w/ 40 mEq/L KCl 1,000 ml IV ASDIRECTED 01/15/19 09:47 Metoclopramide [Reglan] 10 mg IVPUSH Q6H PRN 01/15/19 10:00 Magnesium Oxide 800 mg PO DAILY 01/15/19 12:00 UA W/O MICROSCOPIC [URIN] Routine Calcium Gluconate 1 gm IV Q6HR ONE Calcium Gluconate 1 gm Sodium Chloride 0.9% [Normal Saline] 50 ml IV Q6HRRT 01/16/19 05:00 CMP [COMPREHENSIVE METABOLIC PN,CMP] [CHEM] Routine MAGNESIUM [CHEM] Routine - Assessment Assessment:: Hyperemesis gravidarum Hypokalemia, hypocalcemia - Plan Plan:: Will continue iv fluid hydration, potassium still low, so will increase to 40 meq in iv fluid. Also supplement calcium and magnesium today. Received a second dose of iv steroids this morning. Has not vomited since 2 am--phenergan seems to help the most. Will reevaluate for ketonuria today, reevaluate electrolytes in the morning. Is tolerating small amounts of jello only.
[2019-01-15] MEDS: D5 1/2 NS w/ 40 mEq/L KCl 1,000 ML IV SCH ×2 (10:35→18:41)
[2019-01-15] MEDS: Metoclopramide 10 MG/2 ML SDV IVPUSH PRN ×2 (10:48→16:23)
[2019-01-15] MEDS: Magnesium Oxide 400 MG Tab PO SCH (10:51)
[2019-01-15] MEDS ORDERED: Calcium Gluconate 10% 1 GM/10 ML SDV IV ONE (12:00)
[2019-01-16] MEDS: D5 1/2 NS w/ 40 mEq/L KCl 1,000 ML IV SCH ×5 (01:16→23:35)
[2019-01-16 06:37] LABS: CARBON DIOXIDE,CO2 24.3 mmol/L (21.0-32.0); CHLORIDE,CL 104 mmol/L (98-107); GLUCOSE RANDOM 94 mg/dL (74-106); POTASSIUM,K 3.6 mmol/L (3.5-5.1); SODIUM,NA 135 mmol/L (136-145)
[2019-01-16 06:51] LABS: BLOOD UREA NITROGEN,BUN < 1 mg/dL (7.0-18.0)
[2019-01-16] MEDS: Metoclopramide 10 MG/2 ML SDV IVPUSH PRN (07:41)
[2019-01-16] MEDS: Magnesium Oxide 400 MG Tab PO SCH (09:01)
[2019-01-16] MEDS ORDERED: Calcium Gluconate 10% 1 GM/10 ML SDV IVPUSH ONE (09:23)
[2019-01-16] MEDS ORDERED: Magnesium Sulfate/Water 2 GM in Premix Bag 1 BAG IV ONE (09:24)
[2019-01-16] MEDS ORDERED: methylPREDNISolone Sodium Succinate 40 MG/1 ML SDV IV SCH (09:30)
--- NOTE | 2019-01-16 10:04 | PCM.PN ---
- General Info Date of Service: 01/16/19 Functional Status: Reports: Pain Controlled, Tolerating Diet (small amount of regular), Ambulating, Urinating - Review of Systems General: Reports: Fatigue. Denies: Fever, Weakness Pulmonary: Denies: Shortness of Breath Cardiovascular: Denies: Chest Pain, Palpitations, Lightheadedness Gastrointestinal: Reports: Nausea, Vomiting (only vomited once in past 24 hours) . Denies: Abdominal Pain Genitourinary: Reports: No Symptoms Musculoskeletal: Reports: No Symptoms Skin: Reports: No Symptoms Neurological: Reports: No Symptoms Psychiatric: Reports: No Symptoms - Patient Data Vitals - Most Recent: Last Vital Signs Temp 36.4 C 01/16/19 07:51 Pulse 92 01/16/19 07:51 Resp 16 01/16/19 07:51 BP 119/64 01/16/19 07:51 Pulse Ox 98 01/16/19 07:51 Weight - Most Recent: 63.14 kg I&O - Last 24 Hours: Intake & Output 01/15/19 01/16/19 01/16/19 22:59 06:59 14:59 Intake Total 1300 788 Output Total 1560 925 350 Balance -260 -137 -350 Lab Results Last 24 Hours: Laboratory Results - last 24 hr 01/15/19 01/16/19 Range/Units 12:05 05:50 Sodium 135 L (136-145) mmol/L Potassium 3.6 (3.5-5.1) mmol/L Chloride 104 (98-107) mmol/L Carbon Dioxide 24.3 (21.0-32.0) mmol/L BUN < 1 L (7.0-18.0) mg/dL Creatinine 0.6 (0.6-1.0) mg/dL Est Cr Clr Drug Dosing 120.33 mL/min Estimated GFR (MDRD) > 60.0 ml/min Glucose 94 (74-106) mg/dL Calcium 8.4 L (8.5-10.1) mg/dL Magnesium 1.2 L (1.8-2.4) mg/dL Total Bilirubin 0.5 (0.2-1.0) mg/dL AST 45 H (15-37) IU/L ALT 97 H (14-63) IU/L Alkaline Phosphatase 43 L (46-116) U/L Total Protein 5.8 L (6.4-8.2) g/dL Albumin 2.6 L (3.4-5.0) g/dL Globulin 3.2 (2.6-4.0) g/dL Albumin/Globulin Ratio 0.8 L (0.9-1.6) Urine Color YELLOW Urine Appearance CLEAR Urine pH 6.0 (5.0-8.0) Ur Specific [place] <= 1.005 (1.001-1.035) Urine Protein NEGATIVE (NEGATIVE) mg/dL Urine Glucose (UA) 100 H (NEGATIVE) mg/dL Urine Ketones NEGATIVE (NEGATIVE) mg/dL Urine Occult Blood NEGATIVE (NEGATIVE) Urine Nitrite NEGATIVE (NEGATIVE) Urine Bilirubin NEGATIVE (NEGATIVE) Urine Urobilinogen 1.0 (<2.0) EU/dL Ur Leukocyte Esterase NEGATIVE (NEGATIVE) Med Orders - Current: Current Medications Magnesium Sulfate 2 gm/ Premix 50 mls @ 50 mls/hr IV ONETIME ONE Stop: 01/16/19 10:23 Calcium Gluconate 1 gm/ Sodium (Chloride) 60 mls @ 60 mls/hr IV ONETIME ONE Stop: 01/16/19 10:44 Potassium Chloride/Dextrose/Sod Cl (D5 1/2 Ns W/ 40 Meq/L Kcl) 1,000 mls @ 75 mls/hr IV ASDIRECTED [facility] Magnesium Oxide (Magnesium Oxide) 800 mg PO DAILY [facility] Last Admin: 01/16/19 09:01 Dose: 800 mg Methylprednisolone Sodium Succinate (Solu-Medrol) 16 mg IV ASDIRECTED [facility] Metoclopramide HCl (Reglan) 10 mg IVPUSH Q6H PRN PRN Reason: Nausea Last Admin: 01/16/19 07:41 Dose: 10 mg Metoclopramide HCl (Reglan) 10 mg PO Q6H [facility] Ondansetron HCl (Zofran) 4 mg IVPUSH Q4H PRN PRN Reason: Nausea/Vomiting Last Admin: 01/14/19 19:02 Dose: 4 mg Ondansetron HCl (Zofran Odt) 4 mg PO Q8H [facility] Promethazine HCl (Phenergan) 12.5 mg IM Q6H PRN PRN Reason: Nausea Last Admin: 01/15/19 05:42 Dose: 12.5 mg Sodium Chloride (Saline Flush) 10 ml FLUSH ASDIRECTED PRN PRN Reason: Keep Vein Open Sodium Chloride (Saline Flush) 2.5 ml FLUSH ASDIRECTED PRN PRN Reason: Keep Vein Open Sodium Chloride (Normal Saline) 10 ml IV ASDIRECTED PRN PRN Reason: IV Use Sucralfate (Carafate) 1 gm PO Q6H PRN PRN Reason: heartburn/reflux Last Admin: 01/14/19 23:59 Dose: 1 gm Discontinued Medications Potassium Chloride/Dextrose/Sod Cl (D5 1/2 Ns W/ 20 Meq/L Kcl) 1,000 mls @ 150 mls/hr IV ASDIRECTED [facility] Last Admin: 01/15/19 06:48 Dose: 150 mls/hr Potassium Chloride/Dextrose/Sod Cl (D5 1/2 Ns W/ 40 Meq/L Kcl) 1,000 mls @ 150 mls/hr IV ASDIRECTED [facility] Last Admin: 01/16/19 08:57 Dose: 150 mls/hr Calcium Gluconate 1 gm/ Sodium (Chloride) 60 mls @ 60 mls/hr IV ONETIME ONE Stop: 01/15/19 11:14 Last Admin: 01/15/19 10:35 Dose: 60 mls/hr Methylprednisolone Sodium Succinate (Solu-Medrol) 16 mg IV ASDIRECTED ONE Stop: 01/15/19 09:01 Last Admin: 01/15/19 09:32 Dose: 16 mg - Exam General: Alert, Oriented Neck: Supple Lungs: Normal Respiratory Effort Cardiovascular: Regular Rate, Regular Rhythm GI/Abdominal Exam: Normal Bowel Sounds, Soft, Non-Tender, No Distention Back Exam: Normal Inspection, Full Range of Motion Extremities: No Pedal Edema, Normal Capillary Refill. No: Beth's Sign Skin: Warm, Dry, Intact Neurological: No New Focal Deficit Psy/Mental Status: Alert, Normal Affect, Normal Mood - Problem List & Annotations (1) Hyperemesis gravidarum SNOMED Code(s): 22343172 Code(s): O21.0 - MILD HYPEREMESIS GRAVIDARUM Status: Acute Priority: High Current Visit: Yes (2) Hypokalemia SNOMED Code(s): 48981493 Code(s): E87.6 - HYPOKALEMIA Status: Acute Current Visit: Yes - Problem List Review Problem List Initiated/Reviewed/Updated: Yes - My Orders Last 24 Hours: My Active Orders 01/15/19 09:47 Metoclopramide [Reglan] 10 mg IVPUSH Q6H PRN 01/15/19 10:00 Magnesium Oxide 800 mg PO DAILY 01/16/19 09:24 Magnesium Sulfate/Water [Magnesium Sulfate in Water Premix] 2 gm Premix Bag 1 bag IV ONETIME 01/16/19 09:30 methylPREDNISolone Sod Succ [Solu-MEDROL] 16 mg IV ASDIRECTED 01/16/19 09:45 Calcium Gluconate 1 gm Sodium Chloride 0.9% [Normal Saline] 50 ml IV ONETIME 01/16/19 10:00 D5 1/2 NS w/ 40 mEq/L KCl 1,000 ml IV ASDIRECTED Ondansetron [Zofran ODT] 4 mg PO Q8H 01/16/19 12:00 Metoclopramide [Reglan] 10 mg PO Q6H - Assessment Assessment:: Hyperemesis gravidarum Hypokalemia--corrected hypocalcemia, hypomagnesemia - Plan Plan:: Making nice progress--vomiting has dissipated to just once in 24 hours. She is starting to eat a small amount of regular diet. UA is clear of ketones. Potassium is corrected. Calcium and magesium are low yet, will continue to supplement Will trial oral antiemetics, dose iv steroids again and decrease iv fluids rate. She is drinking water. Patient agrees to plan of care.
[2019-01-16] MEDS: Ondansetron 4 MG Tab.DIS PO SCH ×2 (10:23→17:30)
[2019-01-16] MEDS: Metoclopramide 10 MG Tab PO SCH ×3 (12:09→23:33)
[2019-01-16] MEDS: Promethazine 25 MG/ML SDV IM PRN (20:47)
[2019-01-17] MEDS: Ondansetron 4 MG Tab.DIS PO SCH ×3 (02:49→18:03)
[2019-01-17] MEDS: Metoclopramide 10 MG Tab PO SCH ×4 (06:08→23:52)
[2019-01-17 06:29] LABS: BLOOD UREA NITROGEN,BUN 1 mg/dL (7.0-18.0); CARBON DIOXIDE,CO2 24.9 mmol/L (21.0-32.0); CHLORIDE,CL 103 mmol/L (98-107); GLUCOSE RANDOM 84 mg/dL (74-106); POTASSIUM,K 4.4 mmol/L (3.5-5.1); SODIUM,NA 136 mmol/L (136-145)
[2019-01-17] MEDS ORDERED: Magnesium Sulfate/Water 2 GM in Premix Bag 1 BAG IV ONE (08:22)
--- NOTE | 2019-01-17 08:29 | PCM.PN ---
- General Info Date of Service: 01/17/19 Functional Status: Reports: Tolerating Diet (eating small amounts of food, emesis X1 this am. ) - Review of Systems General: Reports: Weakness, Fatigue HEENT: Reports: No Symptoms Pulmonary: Reports: No Symptoms Cardiovascular: Reports: No Symptoms Gastrointestinal: Reports: Nausea, Vomiting Genitourinary: Reports: No Symptoms Musculoskeletal: Reports: No Symptoms Skin: Reports: No Symptoms Neurological: Reports: No Symptoms Psychiatric: Reports: No Symptoms - Patient Data Vitals - Most Recent: Last Vital Signs Temp 37.1 C 01/17/19 04:22 Pulse 79 01/17/19 04:22 Resp 16 01/17/19 04:22 BP 108/60 01/17/19 04:22 Pulse Ox 98 01/17/19 04:22 Weight - Most Recent: 67.631 kg I&O - Last 24 Hours: Intake & Output 01/16/19 01/17/19 01/17/19 22:59 06:59 14:59 Intake Total 500 1268 Output Total 1050 1050 Balance -550 218 Lab Results Last 24 Hours: Laboratory Results - last 24 hr 01/17/19 Range/Units 06:00 Sodium 136 (136-145) mmol/L Potassium 4.4 (3.5-5.1) mmol/L Chloride 103 (98-107) mmol/L Carbon Dioxide 24.9 (21.0-32.0) mmol/L BUN 1 L (7.0-18.0) mg/dL Creatinine 0.6 (0.6-1.0) mg/dL Est Cr Clr Drug Dosing 120.33 mL/min Estimated GFR (MDRD) > 60.0 ml/min Glucose 84 (74-106) mg/dL Calcium 8.4 L (8.5-10.1) mg/dL Magnesium 1.4 L (1.8-2.4) mg/dL Total Bilirubin 0.4 (0.2-1.0) mg/dL AST 30 (15-37) IU/L ALT 83 H (14-63) IU/L Alkaline Phosphatase 42 L (46-116) U/L Total Protein 5.8 L (6.4-8.2) g/dL Albumin 2.5 L (3.4-5.0) g/dL Globulin 3.3 (2.6-4.0) g/dL Albumin/Globulin Ratio 0.8 L (0.9-1.6) Med Orders - Current: Current Medications Potassium Chloride/Dextrose/Sod Cl (D5 1/2 Ns W/ 40 Meq/L Kcl) 1,000 mls @ 75 mls/hr IV ASDIRECTED [facility] Last Admin: 01/16/19 23:35 Dose: 75 mls/hr Magnesium Sulfate 2 gm/ Premix 50 mls @ 50 mls/hr IV ONETIME ONE Stop: 01/17/19 09:21 Magnesium Oxide (Magnesium Oxide) 800 mg PO DAILY [facility] Last Admin: 01/16/19 09:01 Dose: 800 mg Methylprednisolone (Medrol) 16 mg PO DAILY [facility] Metoclopramide HCl (Reglan) 10 mg IVPUSH Q6H PRN PRN Reason: Nausea Last Admin: 01/16/19 07:41 Dose: 10 mg Metoclopramide HCl (Reglan) 10 mg PO Q6H [facility] Last Admin: 01/17/19 06:08 Dose: 10 mg Ondansetron HCl (Zofran) 4 mg IVPUSH Q4H PRN PRN Reason: Nausea/Vomiting Last Admin: 01/14/19 19:02 Dose: 4 mg Ondansetron HCl (Zofran Odt) 4 mg PO Q8H [facility] Last Admin: 01/17/19 02:49 Dose: Not Given Promethazine HCl (Phenergan) 12.5 mg IM Q6H PRN PRN Reason: Nausea Last Admin: 01/16/19 20:47 Dose: 12.5 mg Sodium Chloride (Saline Flush) 10 ml FLUSH ASDIRECTED PRN PRN Reason: Keep Vein Open Sodium Chloride (Saline Flush) 2.5 ml FLUSH ASDIRECTED PRN PRN Reason: Keep Vein Open Sodium Chloride (Normal Saline) 10 ml IV ASDIRECTED PRN PRN Reason: IV Use Sucralfate (Carafate) 1 gm PO Q6H PRN PRN Reason: heartburn/reflux Last Admin: 01/14/19 23:59 Dose: 1 gm Discontinued Medications Potassium Chloride/Dextrose/Sod Cl (D5 1/2 Ns W/ 20 Meq/L Kcl) 1,000 mls @ 150 mls/hr IV ASDIRECTED [facility] Last Admin: 01/15/19 06:48 Dose: 150 mls/hr Potassium Chloride/Dextrose/Sod Cl (D5 1/2 Ns W/ 40 Meq/L Kcl) 1,000 mls @ 150 mls/hr IV ASDIRECTED [facility] Last Admin: 01/16/19 08:57 Dose: 150 mls/hr Calcium Gluconate 1 gm/ Sodium (Chloride) 60 mls @ 60 mls/hr IV ONETIME ONE Stop: 01/15/19 11:14 Last Admin: 01/15/19 10:35 Dose: 60 mls/hr Magnesium Sulfate 2 gm/ Premix 50 mls @ 50 mls/hr IV ONETIME ONE Stop: 01/16/19 10:23 Last Admin: 01/16/19 10:38 Dose: 50 mls/hr Calcium Gluconate 1 gm/ Sodium (Chloride) 60 mls @ 60 mls/hr IV ONETIME ONE Stop: 01/16/19 14:29 Last Admin: 01/16/19 13:41 Dose: 60 mls/hr Methylprednisolone Sodium Succinate (Solu-Medrol) 16 mg IV ASDIRECTED ONE Stop: 01/15/19 09:01 Last Admin: 01/15/19 09:32 Dose: 16 mg Methylprednisolone Sodium Succinate (Solu-Medrol) 16 mg IV ASDIRECTED [facility] - Exam General: Alert, Oriented GI/Abdominal Exam: Normal Bowel Sounds, Soft, Non-Tender, No Organomegaly, No Distention, No Mass Extremities: Normal Inspection, Non-Tender, No Pedal Edema Psy/Mental Status: Alert, Normal Affect, Normal Mood - Problem List Review Problem List Initiated/Reviewed/Updated: Yes - My Orders Last 24 Hours: My Active Orders 01/17/19 08:22 Magnesium Sulfate/Water [Magnesium Sulfate in Water Premix] 2 gm Premix Bag 1 bag IV ONETIME 01/17/19 09:00 methylPREDNISolone [Medrol] 16 mg PO DAILY - Assessment Assessment:: HD#4 with hyperemesis gravidarum, has responded to IV solumedrol and reglan. Magnesium is still low, other labs, normal except LFT (improved). - Plan Plan:: Will switch to oral steroids today, IV magnesium. If stable on oral medications today, will dismiss tomorrow.
[2019-01-17] MEDS: Magnesium Oxide 400 MG Tab PO SCH (08:52)
[2019-01-17] MEDS: D5 1/2 NS w/ 40 mEq/L KCl 1,000 ML IV SCH (14:26)
[2019-01-18] MEDS: Ondansetron 4 MG Tab.DIS PO SCH ×2 (02:05→10:10)
[2019-01-18] MEDS: D5 1/2 NS w/ 40 mEq/L KCl 1,000 ML IV SCH (03:38)
[2019-01-18] MEDS: Metoclopramide 10 MG Tab PO SCH (06:09)
[2019-01-18] MEDS: Magnesium Oxide 400 MG Tab PO SCH (09:18)
--- NOTE | 2019-01-18 09:20 | PCM.PN ---
- General Info Date of Service: 01/18/19 Functional Status: Reports: Pain Controlled, Tolerating Diet (tolerating most of breakfast without emesis, able to take steroids orally.), Ambulating, Urinating - Review of Systems General: Reports: No Symptoms HEENT: Reports: No Symptoms Pulmonary: Reports: No Symptoms Cardiovascular: Reports: No Symptoms Gastrointestinal: Reports: No Symptoms Genitourinary: Reports: No Symptoms Musculoskeletal: Reports: No Symptoms Skin: Reports: No Symptoms Neurological: Reports: No Symptoms Psychiatric: Reports: No Symptoms - Patient Data Vitals - Most Recent: Last Vital Signs Temp 36.9 C 01/18/19 03:39 Pulse 83 01/18/19 03:39 Resp 14 01/18/19 03:39 BP 107/67 01/18/19 03:39 Pulse Ox 97 01/18/19 03:39 Weight - Most Recent: 67.631 kg Med Orders - Current: Current Medications Potassium Chloride/Dextrose/Sod Cl (D5 1/2 Ns W/ 40 Meq/L Kcl) 1,000 mls @ 75 mls/hr IV ASDIRECTED [facility] Last Admin: 01/18/19 03:38 Dose: 75 mls/hr Magnesium Oxide (Magnesium Oxide) 800 mg PO DAILY [facility] Last Admin: 01/17/19 08:52 Dose: 800 mg Methylprednisolone (Medrol) 16 mg PO DAILY [facility] Last Admin: 01/17/19 09:59 Dose: 16 mg Metoclopramide HCl (Reglan) 10 mg IVPUSH Q6H PRN PRN Reason: Nausea Last Admin: 01/16/19 07:41 Dose: 10 mg Metoclopramide HCl (Reglan) 10 mg PO Q6H [facility] Last Admin: 01/18/19 06:09 Dose: 10 mg Ondansetron HCl (Zofran) 4 mg IVPUSH Q4H PRN PRN Reason: Nausea/Vomiting Last Admin: 01/14/19 19:02 Dose: 4 mg Ondansetron HCl (Zofran Odt) 4 mg PO Q8H [facility] Last Admin: 01/18/19 02:05 Dose: 4 mg Promethazine HCl (Phenergan) 12.5 mg IM Q6H PRN PRN Reason: Nausea Last Admin: 01/16/19 20:47 Dose: 12.5 mg Sodium Chloride (Saline Flush) 10 ml FLUSH ASDIRECTED PRN PRN Reason: Keep Vein Open Sodium Chloride (Saline Flush) 2.5 ml FLUSH ASDIRECTED PRN PRN Reason: Keep Vein Open Sodium Chloride (Normal Saline) 10 ml IV ASDIRECTED PRN PRN Reason: IV Use Sucralfate (Carafate) 1 gm PO Q6H PRN PRN Reason: heartburn/reflux Last Admin: 01/14/19 23:59 Dose: 1 gm Discontinued Medications Potassium Chloride/Dextrose/Sod Cl (D5 1/2 Ns W/ 20 Meq/L Kcl) 1,000 mls @ 150 mls/hr IV ASDIRECTED [facility] Last Admin: 01/15/19 06:48 Dose: 150 mls/hr Potassium Chloride/Dextrose/Sod Cl (D5 1/2 Ns W/ 40 Meq/L Kcl) 1,000 mls @ 150 mls/hr IV ASDIRECTED [facility] Last Admin: 01/16/19 08:57 Dose: 150 mls/hr Calcium Gluconate 1 gm/ Sodium (Chloride) 60 mls @ 60 mls/hr IV ONETIME ONE Stop: 01/15/19 11:14 Last Admin: 01/15/19 10:35 Dose: 60 mls/hr Magnesium Sulfate 2 gm/ Premix 50 mls @ 50 mls/hr IV ONETIME ONE Stop: 01/16/19 10:23 Last Admin: 01/16/19 10:38 Dose: 50 mls/hr Calcium Gluconate 1 gm/ Sodium (Chloride) 60 mls @ 60 mls/hr IV ONETIME ONE Stop: 01/16/19 14:29 Last Admin: 01/16/19 13:41 Dose: 60 mls/hr Magnesium Sulfate 2 gm/ Premix 50 mls @ 50 mls/hr IV ONETIME ONE Stop: 01/17/19 09:21 Last Admin: 01/17/19 08:52 Dose: 50 mls/hr Methylprednisolone Sodium Succinate (Solu-Medrol) 16 mg IV ASDIRECTED ONE Stop: 01/15/19 09:01 Last Admin: 01/15/19 09:32 Dose: 16 mg Methylprednisolone Sodium Succinate (Solu-Medrol) 16 mg IV ASDIRECTED [facility] - Exam General: Alert, Oriented Lungs: Normal Respiratory Effort GI/Abdominal Exam: Soft, Non-Tender, No Distention Extremities: No Pedal Edema - Problem List Review Problem List Initiated/Reviewed/Updated: Yes - My Orders Last 24 Hours: My Active Orders 01/17/19 09:00 methylPREDNISolone [Medrol] 16 mg PO DAILY 01/18/19 08:32 COMPREHENSIVE METABOLIC PN,CMP [CHEM] Routine - Assessment Assessment:: HD#5 with hyperemesis gravidarum, tolerating oral steroids, magnesium level improved, liver functions near normal. Will dismiss to home today on oral magnesium , reglan, zofran and solumedrol. - Plan Plan:: Discharge instructions reviewed.
[2019-01-18 09:37] LABS: BLOOD UREA NITROGEN,BUN 2 mg/dL (7.0-18.0); CARBON DIOXIDE,CO2 25.3 mmol/L (21.0-32.0); CHLORIDE,CL 102 mmol/L (98-107); GLUCOSE RANDOM 89 mg/dL (74-106); POTASSIUM,K 4.3 mmol/L (3.5-5.1); SODIUM,NA 135 mmol/L (136-145)
== END 2019-01-18 10:20 | disposition home or self-care (01) | DRG 566 ==
LOC: MW.OB 11:45 → OBSVTOIN 13:42 → MW.OB 13:42
PROVIDERS: ADMIT Obstetrics & Gynecology; ATTEND Obstetrics & Gynecology
DX: O21.0 Mild hyperemesis gravidarum (principal); O99.282 Endocrine, nutritional and metabolic diseases complicating pregnancy, second trimester; E87.6 Hypokalemia; E83.51 Hypocalcemia; R79.89 Other specified abnormal findings of blood chemistry; O99.342 Other mental disorders complicating pregnancy, second trimester; F32.9 Major depressive disorder, single episode, unspecified; Z3A.16 16 weeks gestation of pregnancy; Z79.52 Long term (current) use of systemic steroids; Z79.899 Other long term (current) drug therapy
CPT/HCPCS: 36415; 80053; 81003; 83735; A9270-GY; J0610; J2405; J2550; J2765; J2920; J3475; J3480; J7050

== ENCOUNTER 2019-05-12 20:48 | Emergency (ER) | payer BC ==
--- NOTE | 2019-05-12 21:19 | EDM.PDOC ---
ED HPI GENERAL MEDICAL PROBLEM - General Chief Complaint: Chest Pain Stated Complaint: HEART BURN Time Seen by Provider: 05/12/19 20:57 Source of Information: Reports: Patient History Limitations: Reports: No Limitations - History of Present Illness INITIAL COMMENTS - FREE TEXT/NARRATIVE: 38-year-old female G3, P1 at 33 weeks presenting with epigastric abdominal pain. Patient reports 1 hour history of burning or sharp pain just below her xiphoid process. She denies any other symptomology. She denies any chest pain , shortness of breath, fever, chills, nausea, vomiting, loose stools. Patient denies any recent trips or travels or history of DVT or PE. There is no dysuria or bloody vaginal discharge. No recent trauma. No headache or vision changes. chest Pain Score (Numeric/FACES): 10 - Related Data Allergies Allergy/AdvReac Type Severity Reaction Status Date / Time No Known Allergies Allergy Verified 05/12/19 20:55 Home Meds: Home Meds Cholecalciferol (Vitamin D3) [Vitamin D3] 1,000 unit PO DAILY 03/09/17 [History] Mv-Mn/Iron/FA/Herbal/Digestive [ One Tablet] 1 tab PO DAILY 03/09/17 [ History] Ondansetron [Zofran ODT] 4 mg PO Q8HR 11/23/18 [History] Ondansetron [Zofran ODT] 4 mg PO Q6H PRN #10 tab.dis 01/08/19 [Rx] Magnesium Oxide [Magnesium] 200 mg PO BID 120 Days #120 tab.chew 01/18/19 [Rx] Metoclopramide HCl [Metoclopramide HCl Odt] 10 mg PO QID #120 tab.rapdis [Rx] Past Medical History HEENT History: Reports: Impaired Vision Other HEENT History: wears glasses, but did not bring Cardiovascular History: Reports: None Respiratory History: Reports: None Gastrointestinal History: Reports: None Genitourinary History: Reports: None [employer] History: Reports: Ectopic , Musculoskeletal History: Reports: None Neurological History: Reports: None Psychiatric History: Reports: Anxiety, Depression Endocrine/Metabolic History: Reports: None Hematologic History: Reports: None Immunologic History: Reports: None Oncologic (Cancer) History: Reports: None Dermatologic History: Reports: None - Infectious Disease History Infectious Disease History: Reports: Chicken Pox - Past Surgical History Head Surgeries/Procedures: Reports: None HEENT Surgical History: Reports: Other (See Below) Other HEENT Surgeries/Procedures: eustachian tubes as a child Female Surgical History: Reports: Other (See Below) Other Female Surgeries/Procedures: removal of left tube in 2016 Social & Family History - Family History Family Medical History: Noncontributory - Tobacco Use Smoking Status *Q: Never Smoker Second Hand Smoke Exposure: No - Caffeine Use Caffeine Use: Reports: Soda - Recreational Drug Use Recreational Drug Use: No ED ROS GENERAL - Review of Systems Review Of Systems: Comprehensive ROS is negative, except as noted in HPI. ED EXAM, GENERAL - Physical Exam Exam: See Below Free Text/Narrative:: General: No acute distress. Comfortable. Heent: Examination revealed no pallor, no icterus, no lymphadenopathy. The patient has normal posterior pharynx, moist mucous membranes. Neck: Supple. No JVD. No rigidity. Heart: Normal rate. Reg rhythm. No murmurs appreciated. Lungs: Bilaterally clear to auscultation. No focal findings. Abdomen: Gravid. Fundus appreciated about 10 cm above the umbilicus. There is significant tenderness in the epigastrium under the xiphoid. This does seem to reproduce the patient's pain. Non-distended, soft, no CVA tenderness. Neuro: Pt is moving all four extremities. EOMI. PERRL. Normal speech. Skin: Exposed areas appeared normally perfused, warm, normal color with no meaningful rashes or lesions. Extremities: Peripheral examination revealed no pedal edema. Peripheral pulses were 2+. Course - Vital Signs Text/Narrative:: Is not is not consistent at all with pulmonary embolus or acute coronary syndrome. Negative troponin. EKG nonischemic. No recent trips or travels. No swollen legs. Patient is not a smoker. She does have a risk factor in for pulmonary embolus however her epigastric discomfort is easily reproducible with palpation of the epigastric region. Also, GI cocktail was highly efficacious at taking away her discomfort. Discharge home to take milk of magnesia as needed follow-up with her providers. Return precautions. Last Recorded V/S: Last Vital Signs Temp 97.6 F 05/12/19 20:52 Pulse 82 05/12/19 20:52 Resp 21 H 05/12/19 20:52 BP 123/80 05/12/19 20:52 Pulse Ox 97 05/12/19 20:52 - Orders/Labs/Meds Labs: Laboratory Tests 05/12/19 Range/Units 20:45 Troponin I < 0.050 (0.000-0.056) ng/mL Meds: Medications Discontinued Medications Generic Name Dose Route Start Last Admin Trade Name Kayla PRN Reason Stop Dose Admin Metoclopramide HCl 5 mg/ 0 mg 05/12/19 22:16 05/12/19 22:26 Lidocaine HCl 5 ml PO 05/12/19 22:17 1 each ONETIME ONE Administration Departure - Departure Time of Disposition: 22:45 Disposition: Home, Self-Care 01 Condition: Good Clinical Impression: Epigastric pain - Discharge Information Forms: ED Department Discharge Additional Instructions: Take milk of magnesia as directed to help with your discomfort. 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 Return with any new or troubling symptoms immediately. The following information is given to patients seen in the emergency department who are being discharged to home. This information is to outline your options for follow-up care. We provide all patients seen in our emergency department with a follow-up referral. The need for follow-up, as well as the timing and circumstances, are variable depending upon the specifics of your emergency department visit. If you don't have a primary care physician on staff, we will provide you with a referral. We always advise you to contact your personal physician following an emergency department visit to inform them of the circumstance of the visit and for follow-up with them and/or the need for any referrals to a consulting specialist. The emergency department will also refer you to a specialist when appropriate. This referral assures that you have the opportunity for follow-up care with a specialist. All of these measure are taken in an effort to provide you with optimal care, which includes your follow-up. Under all circumstances we always encourage you to contact your private physician who remains a resource for coordinating your care. When calling for follow-up care, please make the office aware that this follow-up is from your recent emergency room visit. If for any reason you are refused follow-up, please contact the [facility] Emergency Department at and asked to speak to the emergency department charge nurse. Sepsis Event Note - Evaluation Sepsis Screening Result: No Definite Risk - Focused Exam Vital Signs: Vital Signs Temp Pulse Resp BP Pulse Ox 05/12/19 20:52 97.6 F 82 21 H 123/80 97 Date Exam was Performed: 05/12/19 Time Exam was Performed: 22:44
[2019-05-12] MEDS ORDERED: METOCLOPRAMIDE PO ONE ×2 (22:16)
[2019-05-12] MEDS ORDERED: LIDOCAINE 2% PO ONE ×2 (22:16)
== END 2019-05-12 23:00 | disposition home or self-care (01) ==
LOC: MW.ED 20:48
DX: O99.89 Other specified diseases and conditions complicating pregnancy, childbirth and the puerperium (principal); R10.13 Epigastric pain; Z3A.33 33 weeks gestation of pregnancy
CPT/HCPCS: 36415; 84484; 93005; 99284; A9270

== ENCOUNTER 2019-06-24 05:10 | Inpatient (IN) | payer BC ==
[2019-06-24] MEDS ORDERED: Sodium Chloride 0.9% 10 ML SDV IV PRN (05:42)
[2019-06-24] MEDS ORDERED: Citric Acid/Sodium Citrate Solution 30 ML Cup PO ONE (05:42)
[2019-06-24] MEDS ORDERED: ceFAZolin 2 GM in Premix Bag 1 BAG IV ONE (05:42)
[2019-06-24] MEDS ORDERED: Sodium Chloride 0.9% 2.5 ML Syringe FLUSH PRN (05:42)
[2019-06-24] MEDS ORDERED: Sodium Chloride 0.9% 10 ML Syringe FLUSH PRN (05:42)
[2019-06-24] MEDS ORDERED: Oxytocin/0.9 % Sodium Chloride 30 UNIT/500 ML BAG IV SCH (05:45)
[2019-06-24] MEDS: Lactated Ringers 1,000 ML IV SCH ×2 (05:58→06:51)
[2019-06-24] MEDS ORDERED: Oxytocin 10 Units/1 ML SDV ONE (07:25)
[2019-06-24] MEDS ORDERED: Ondansetron 4 MG/2 ML SDV ONE (07:25)
[2019-06-24] MEDS ORDERED: Morphine PF 10 MG/10 ML SDV ONE (07:25)
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
[2019-06-24] MEDS ORDERED: Octyl 2-Cyanoacrylate 1 Tube ONE ×2 (07:45→08:22)
[2019-06-24] MEDS ORDERED: Citric Acid/Sodium Citrate Solution 30 ML Cup ONE (07:46)
[2019-06-24] MEDS ORDERED: fentaNYL 100 MCG/2 ML SDV IVPUSH PRN (08:12)
[2019-06-24] MEDS ORDERED: Nalbuphine 10 MG/1 ML Vial IVPUSH PRN (08:12)
[2019-06-24] MEDS ORDERED: Acetaminophen/oxyCODONE 325-5 MG Tab PO PRN ×2 (08:12→09:14)
--- NOTE | 2019-06-24 08:58 | PCM.POSTAN ---
POST ANESTHESIA ASSESSMENT - MENTAL STATUS Mental Status: Alert, Oriented - RESPIRATORY Respiratory Status: Respiratory Rate WNL, Airway Patent, O2 Saturation Stable - CARDIOVASCULAR CV Status: Pulse Rate WNL, Blood Pressure Stable - GASTROINTESTINAL GI Status: No Symptoms - PAIN Pain Score: 0 - POST OP HYDRATION Hydration Status: Adequate & Stable
[2019-06-24] MEDS ORDERED: Lanolin 100% Cream 7 GM Tube TOP PRN (09:14)
[2019-06-24] MEDS ORDERED: Oxytocin 10 Units/1 ML SDV IM PRN (09:14)
[2019-06-24] MEDS ORDERED: Bisacodyl 10 MG Supp RECTAL PRN (09:14)
[2019-06-24] MEDS ORDERED: Ondansetron 4 MG/2 ML SDV IVPUSH PRN (09:14)
[2019-06-24] MEDS ORDERED: Misoprostol 200 MCG Tab RECTAL PRN (09:14)
[2019-06-24] MEDS ORDERED: Methylergonovine 0.2 MG/1 ML Amp IM PRN (09:14)
[2019-06-24] MEDS ORDERED: Tranexamic Acid 1,000 MG in Sodium Chloride 0.9% 100 ML IV PRN (09:14)
[2019-06-24] MEDS ORDERED: Oxytocin/Lactated Ringers 30 UNIT/500 ML BAG IV SCH (09:15)
[2019-06-24] MEDS ORDERED: Lactated Ringers 1,000 ML IV SCH (09:15)
--- NOTE | 2019-06-24 09:21 | PCM.OPNOTE ---
- General Post-Op/Procedure Note Date of Surgery/Procedure: 06/24/19 Operative Procedure(s): primary low transverse Findings: Liveborn male 9/9 weight 3220 grams, normal pelvis. Pre Op Diagnosis: 39 weeks, placental abnormality Post-Op Diagnosis: Same Anesthesia Technique: Spinal Primary Surgeon: Marbella Ferraro Anesthesia Provider: Wojciech Rangel Rn Behavioral Health: Gela Kirkland Pathology: placenta to pathology Fluid Replacement, Intraop: 1,000 Output, Urine Amount: 60 EBL in mLs: 500 Complications: None Known Condition: Good Free Text/Narrative:: Intake & Output 06/23/19 06/24/19 06/24/19 22:59 06:59 14:59 Output Total 60 Balance -60
[2019-06-24] MEDS: Ketorolac 30 MG/ML SDV IVPUSH SCH ×3 (09:57→21:55)
[2019-06-24] MEDS: diphenhydrAMINE 50 MG/ML SDV IVPUSH PRN (11:16)
--- NOTE | 2019-06-24 14:02 | OR ---
SURGEON: Marbella Ferraro M.D. DATE OF PROCEDURE: 06/24/2019 PREOPERATIVE DIAGNOSIS: A 39-week intrauterine , possible angular with abnormal placental implantation. POSTOPERATIVE DIAGNOSIS: A 39-week intrauterine , possible angular with abnormal placental implantation. PROCEDURE: Primary low transverse section. PRIMARY SURGEON: Marbella Ferraro M.D. ANESTHESIA: Spinal. ESTIMATED BLOOD LOSS: 500 mL. FLUIDS: 1000 mL crystalloid. FINDINGS: Liveborn male, score of 9 and 9, weighing 3220 g. Normal-appearing uterus, tubes, and ovaries. Normal-appearing uterine cavity. COMPLICATIONS: None known. DISPOSITION: Mother and baby are in recovery in good condition. BRIEF HISTORY: This is a 29-year-old female. She is G2, P0. She presents at 39 weeks' gestation for delivery. Her has been complicated by severe hyperemesis throughout most of the as well as a suspected angular . She was followed with Maternal- Medicine through the first trimester and into the second trimester and this appeared to resolve or clarified later in the . Extensive discussions were held regarding risks including recommendation for if it were an angular and although she has carried to term without any complication, she still desires to proceed with a primary delivery, understanding that I would be completely willing to allow her to labor. Risks of the section were discussed including bleeding; infection; injury to bowel, bladder, blood vessels, ureters, or other organs; risk of thromboembolic event; and risk of anesthesia. Understanding all of these risks, she does desire to proceed. DESCRIPTION OF PROCEDURE: With the patient in left tilt position, under adequate spinal analgesia, the abdomen was prepped with chlorhexidine and draped in usual fashion for abdominal surgery. SCDs were in place. Brar catheter had been placed and an appropriate time-out was held. She had received 2 g of Ancef IV. After documentation of adequate analgesia, a transverse curvilinear incision was made with a scalpel 2 cm cephalad from the pubic symphysis and carried through the subcutaneous tissue to the fascia, which was scored transversely in the midline. The fascial incision was extended laterally using curved Mccain scissors. The fascia was elevated from the underlying rectus muscle using sharp and blunt dissection. The rectus muscles were in the midline using blunt dissection. A finger was placed in the peritoneal cavity. The incision was extended and the Jessee O retractor was placed into the abdominal cavity. The visceroperitoneum over the lower uterine segment was incised to develop an adequate bladder flap. A transverse curvilinear incision was made over the lower uterine segment using a scalpel. A finger was used to extend the incision using cephalad and caudad traction. The amniotic membranes were ruptured. Clear fluid was noted. head was delivered with fundal pressures via the uterine incision. Bulb suctioning prior to delivery of the 's body and shoulders. Once the infant was delivered, the cord was allowed to pulsate for 1 minute and then was doubly clamped and cut and the was handed to the nurse in attendance at delivery. The is a liveborn male, scores 9 and 9, weighing 3220 g. Cord blood was collected for cord ABGs as well as routine cord blood sampling. Pitocin was initiated after delivery of the to assist with delivery of the placenta, which was delivered spontaneously intact. The uterine cavity was cleaned with a dry laparotomy tape. The cervix was opened with ring forceps. The tubes and ovaries were inspected and appeared normal. The uterine cavity was inspected and was normal. The uterine incision was closed with a running suture of 0 Polysorb followed by an imbricating layer of 0 Polysorb. Paracolic gutters and posterior cul-de-sac were cleaned with a wet laparotomy tape. The uterine incision was again inspected and was hemostatic, therefore the Jessee O retractor was removed. Final inspection of the incision confirmed hemostasis. The rectus muscle and peritoneum were loosely approximated in the midline using a running mattress suture of 0 Polysorb. Posterior aspect of the fascia was inspected and was hemostatic. The fascial incision was closed with a running suture of 0 Polysorb. Subcutaneous tissue was irrigated. Any areas of bleeding that were noted were cauterized. The skin was closed with a running subcuticular suture of 3-0 Monocryl followed by Dermabond. Final sponge, needle, and instrument counts were reported as correct. There were no known complications. Mother and baby are in recovery in good condition. ZANDER / BOBBY /[id number]
[2019-06-24] MEDS: Docusate Sodium 100 MG Cap PO SCH (20:52)
[2019-06-25] MEDS: diphenhydrAMINE 50 MG/ML SDV IVPUSH PRN (01:46)
[2019-06-25] MEDS: Ketorolac 30 MG/ML SDV IVPUSH SCH ×2 (03:40→09:41)
[2019-06-25] MEDS: Docusate Sodium 100 MG Cap PO SCH ×2 (09:41→20:50)
--- NOTE | 2019-06-25 10:16 | PCM.PNPP ---
- General Info Date of Service: 06/25/19 Functional Status: Reports: Pain Controlled, Tolerating Diet, Ambulating, Urinating - Review of Systems General: Reports: No Symptoms HEENT: Reports: No Symptoms Pulmonary: Reports: No Symptoms Cardiovascular: Reports: No Symptoms Gastrointestinal: Reports: No Symptoms Genitourinary: Reports: No Symptoms Musculoskeletal: Reports: No Symptoms Skin: Reports: No Symptoms Neurological: Reports: No Symptoms Psychiatric: Reports: No Symptoms - Patient Data Vital Signs - Most Recent: Last Vital Signs Temp 36.6 C 06/25/19 08:00 Pulse 84 06/25/19 08:00 Resp 16 06/25/19 08:00 BP 128/79 06/25/19 08:00 Pulse Ox 98 06/25/19 08:00 Weight - Most Recent: 175 lb I&O - Last 24 Hours: Intake & Output 06/24/19 06/25/19 06/25/19 22:59 06:59 14:59 Intake Total 900 Output Total 400 2290 Balance -400 -1390 Lab Results - Last 24 Hours: Laboratory Results - last 24 hr 06/25/19 Range/Units 06:05 Hgb 8.4 L (12.0-16.0) g/dL Hct 25.0 L (36.0-46.0) % Med Orders - Current: Current Medications Bisacodyl (Dulcolax) 10 mg RECTAL ONETIME PRN PRN Reason: Constipation Diphenhydramine HCl (Benadryl) 25 mg IVPUSH Q6H PRN PRN Reason: Itching or Nausea Last Admin: 06/25/19 01:46 Dose: 25 mg Docusate Sodium (Colace) 100 mg PO BID [facility] Last Admin: 06/25/19 09:41 Dose: 100 mg Emollient Ointment (Lansinoh Hpa) 0 gm TOP ASDIRECTED PRN PRN Reason: Sore Nipples Lactated Ringer's (Ringers, Lactated) 1,000 mls @ 500 mls/hr IV BOLUS [facility] Last Admin: 06/24/19 06:51 Dose: 500 mls/hr Oxytocin/Sodium Chloride (Oxytocin 30 Unit/500 Ml-Ns) 30 unit in 500 mls @ 250 mls/hr IV TITRATE KEL Lactated Ringer's (Ringers, Lactated) 1,000 mls @ 125 mls/hr IV ASDIRECTED KEL Last Admin: 06/24/19 15:06 Dose: 125 mls/hr Oxytocin/Lactated Ringer's (Pitocin In Lr 30 Units/500 Ml) 30 unit in 500 mls @ 999 mls/hr IV TITRATE KEL; Protocol Tranexamic Acid 1,000 mg/ (Sodium Chloride) 110 mls @ 660 mls/hr IV ONETIME PRN PRN Reason: Bleeding Ibuprofen (Motrin) 800 mg PO Q8H PRN PRN Reason: mild pain or fever Methylergonovine Maleate (Methergine) 0.2 mg IM ONETIME PRN PRN Reason: Excessive Vaginal Bleeding Misoprostol (Cytotec) 1,000 mcg RECTAL ONETIME PRN PRN Reason: excessive bleeding Ondansetron HCl (Zofran) 4 mg IVPUSH Q4H PRN PRN Reason: Nausea/Vomiting Oxycodone/Acetaminophen (Percocet 325-5 Mg) 1 tab PO ONETIME PRN PRN Reason: Pain (moderate 4-6) Oxycodone/Acetaminophen (Percocet 325-5 Mg) 1 tab PO Q4H PRN PRN Reason: Pain (moderate 4-6) Oxycodone/Acetaminophen (Percocet 325-5 Mg) 2 tab PO Q4H PRN PRN Reason: Pain (moderate 4-6) Oxytocin (Pitocin) 10 unit IM ASDIRECTED PRN PRN Reason: Excessive Vaginal Bleeding Sodium Chloride (Saline Flush) 10 ml FLUSH ASDIRECTED PRN PRN Reason: Keep Vein Open Last Admin: 06/24/19 09:59 Dose: 10 ml Sodium Chloride (Saline Flush) 2.5 ml FLUSH ASDIRECTED PRN PRN Reason: Keep Vein Open Last Admin: 06/24/19 11:19 Dose: 2.5 ml Sodium Chloride (Normal Saline) 10 ml IV ASDIRECTED PRN PRN Reason: IV Use Discontinued Medications Citric Acid/Sodium Citrate (Bicitra Solution) 30 ml PO ONETIME ONE Stop: 06/24/19 05:43 Last Admin: 06/24/19 07:49 Dose: 15 ml Citric Acid/Sodium Citrate (Bicitra Solution) Confirm Administered Dose 30 ml .ROUTE .STK-MED ONE Stop: 06/24/19 07:47 Fentanyl (Sublimaze) 50 mcg IVPUSH Q5M PRN PRN Reason: Pain (severe 7-10) Stop: 06/25/19 08:12 Cefazolin Sodium/Dextrose 2 gm (/ Premix) 50 mls @ 100 mls/hr IV ONETIME ONE Stop: 06/24/19 06:11 Ketorolac Tromethamine (Toradol) 30 mg IVPUSH Q6H [facility] Stop: 06/25/19 09:16 Last Admin: 06/25/19 09:41 Dose: 30 mg Morphine Sulfate (Duramorph Pf) Confirm Administered Dose 10 mg .ROUTE .STK-MED ONE Stop: 06/24/19 07:26 Nalbuphine HCl (Nubain) 2.5 mg IVPUSH Q3H PRN PRN Reason: Pruritis Stop: 06/25/19 08:12 Last Admin: 06/24/19 17:28 Dose: 2.5 mg Octyl Cyanoacrylate (Dermabond Advance) Confirm Administered Dose 1 applic .ROUTE .STK-MED ONE Stop: 06/24/19 07:46 Octyl Cyanoacrylate (Dermabond Advance) Confirm Administered Dose 1 applic .ROUTE .STK-MED ONE Stop: 06/24/19 08:23 Ondansetron HCl (Zofran) Confirm Administered Dose 4 mg .ROUTE .STK-MED ONE Stop: 06/24/19 07:26 Oxytocin (Pitocin) Confirm Administered Dose 20 unit .ROUTE .STK-MED ONE Stop: 06/24/19 07:26 - Infant Interaction Infant Disposition, : at Bedside Interaction: Holding - Recovery Exam Fundal Tone: Firm Fundal Level: At Umbilicus Fundal Placement: Midline Lochia Amount: Scant Lochia Color: Rubra/Red Perineum Description: Intact, Minimal Bruising/Swelling Episiotomy/Laceration: None Bladder Status: Voiding Urinary Elimination: Indwelling Catheter - Exam General: Alert, Oriented, Cooperative, No Acute Distress HEENT: Pupils Equal, Pupils Reactive Neck: Supple, Trachea Midline, No JVD Lungs: Normal Respiratory Effort GI/Abdominal Exam: Normal Bowel Sounds, Soft, Non-Tender, No Distention Extremities: Normal Inspection, Normal Range of Motion, Non-Tender, No Pedal Edema Skin: Warm, Dry, Intact Wound/Incisions: Healing Well Neurological: No New Focal Deficit Psy/Mental Status: Alert, Normal Affect, Normal Mood - Problem List Review Problem List Initiated/Reviewed/Updated: Yes - Assessment Assessment:: 29yo POD1 s/p primary , stable and recovering well. - Plan Plan:: vitals stable Hgb 8.4, light bleeding, denies s/s of anemia, will start iron supplements after discharge pain controlled ambulating, voiding and tolerating PO. + flatus Plan for discharge home tomorrow.
--- NOTE | 2019-06-25 12:42 | PCM48HPAN ---
Post Anesthesia Note - EVALUATION WITHIN 48HRS OF ANESTHETIC Vital Signs in Normal Range: Yes Patient Participated in Evaluation: Yes Respiratory Function Stable: Yes Airway Patent: Yes Cardiovascular Function Stable: Yes Hydration Status Stable: Yes Pain Control Satisfactory: Yes Nausea and Vomiting Control Satisfactory: Yes Mental Status Recovered: Yes Vital Signs: Last Vital Signs Temp 36.4 C 06/25/19 11:51 Pulse 82 06/25/19 11:51 Resp 16 06/25/19 11:51 BP 130/74 06/25/19 11:51 Pulse Ox 98 06/25/19 11:51
[2019-06-25] MEDS: Acetaminophen/oxyCODONE 325-5 MG Tab PO PRN (14:31)
[2019-06-25] MEDS: Ibuprofen 800 MG Tab PO PRN (16:50)
[2019-06-26] MEDS: Ibuprofen 800 MG Tab PO PRN ×2 (04:19→12:49)
--- NOTE | 2019-06-26 11:15 | PCM.PNPP ---
- General Info Date of Service: 06/26/19 Functional Status: Reports: Pain Controlled, Tolerating Diet, Ambulating, Urinating - Review of Systems General: Reports: No Symptoms HEENT: Reports: No Symptoms Pulmonary: Reports: No Symptoms Cardiovascular: Reports: No Symptoms Gastrointestinal: Reports: No Symptoms Genitourinary: Reports: No Symptoms Musculoskeletal: Reports: No Symptoms Skin: Reports: No Symptoms Neurological: Reports: No Symptoms Psychiatric: Reports: No Symptoms - Patient Data Vital Signs - Most Recent: Last Vital Signs Temp 36.3 C 06/26/19 08:00 Pulse 86 06/26/19 08:00 Resp 16 06/26/19 08:00 BP 125/82 06/26/19 08:00 Pulse Ox 96 06/26/19 08:00 Weight - Most Recent: 175 lb I&O - Last 24 Hours: Intake & Output 06/25/19 06/26/19 06/26/19 22:59 06:59 14:59 Output Total 350 Balance -350 Med Orders - Current: Current Medications Bisacodyl (Dulcolax) 10 mg RECTAL ONETIME PRN PRN Reason: Constipation Diphenhydramine HCl (Benadryl) 25 mg IVPUSH Q6H PRN PRN Reason: Itching or Nausea Last Admin: 06/25/19 01:46 Dose: 25 mg Docusate Sodium (Colace) 100 mg PO BID [facility] Last Admin: 06/25/19 20:50 Dose: 100 mg Emollient Ointment (Lansinoh Hpa) 0 gm TOP ASDIRECTED PRN PRN Reason: Sore Nipples Lactated Ringer's (Ringers, Lactated) 1,000 mls @ 500 mls/hr IV BOLUS [facility] Last Admin: 06/24/19 06:51 Dose: 500 mls/hr Oxytocin/Sodium Chloride (Oxytocin 30 Unit/500 Ml-Ns) 30 unit in 500 mls @ 250 mls/hr IV TITRATE KEL Lactated Ringer's (Ringers, Lactated) 1,000 mls @ 125 mls/hr IV ASDIRECTED [facility] Last Admin: 06/24/19 15:06 Dose: 125 mls/hr Oxytocin/Lactated Ringer's (Pitocin In Lr 30 Units/500 Ml) 30 unit in 500 mls @ 999 mls/hr IV TITRATE KEL; Protocol Tranexamic Acid 1,000 mg/ (Sodium Chloride) 110 mls @ 660 mls/hr IV ONETIME PRN PRN Reason: Bleeding Ibuprofen (Motrin) 800 mg PO Q8H PRN PRN Reason: mild pain or fever Last Admin: 06/26/19 04:19 Dose: 800 mg Methylergonovine Maleate (Methergine) 0.2 mg IM ONETIME PRN PRN Reason: Excessive Vaginal Bleeding Misoprostol (Cytotec) 1,000 mcg RECTAL ONETIME PRN PRN Reason: excessive bleeding Ondansetron HCl (Zofran) 4 mg IVPUSH Q4H PRN PRN Reason: Nausea/Vomiting Oxycodone/Acetaminophen (Percocet 325-5 Mg) 1 tab PO ONETIME PRN PRN Reason: Pain (moderate 4-6) Last Admin: 06/25/19 21:54 Dose: 1 tab Oxycodone/Acetaminophen (Percocet 325-5 Mg) 1 tab PO Q4H PRN PRN Reason: Pain (moderate 4-6) Last Admin: 06/25/19 14:31 Dose: 1 tab Oxycodone/Acetaminophen (Percocet 325-5 Mg) 2 tab PO Q4H PRN PRN Reason: Pain (moderate 4-6) Oxytocin (Pitocin) 10 unit IM ASDIRECTED PRN PRN Reason: Excessive Vaginal Bleeding Sodium Chloride (Saline Flush) 10 ml FLUSH ASDIRECTED PRN PRN Reason: Keep Vein Open Last Admin: 06/24/19 09:59 Dose: 10 ml Sodium Chloride (Saline Flush) 2.5 ml FLUSH ASDIRECTED PRN PRN Reason: Keep Vein Open Last Admin: 06/24/19 11:19 Dose: 2.5 ml Sodium Chloride (Normal Saline) 10 ml IV ASDIRECTED PRN PRN Reason: IV Use Discontinued Medications Citric Acid/Sodium Citrate (Bicitra Solution) 30 ml PO ONETIME ONE Stop: 06/24/19 05:43 Last Admin: 06/24/19 07:49 Dose: 15 ml Citric Acid/Sodium Citrate (Bicitra Solution) Confirm Administered Dose 30 ml .ROUTE .STK-MED ONE Stop: 06/24/19 07:47 Fentanyl (Sublimaze) 50 mcg IVPUSH Q5M PRN PRN Reason: Pain (severe 7-10) Stop: 06/25/19 08:12 Cefazolin Sodium/Dextrose 2 gm (/ Premix) 50 mls @ 100 mls/hr IV ONETIME ONE Stop: 06/24/19 06:11 Ketorolac Tromethamine (Toradol) 30 mg IVPUSH Q6H [facility] Stop: 06/25/19 09:16 Last Admin: 06/25/19 09:41 Dose: 30 mg Morphine Sulfate (Duramorph Pf) Confirm Administered Dose 10 mg .ROUTE .STK-MED ONE Stop: 06/24/19 07:26 Nalbuphine HCl (Nubain) 2.5 mg IVPUSH Q3H PRN PRN Reason: Pruritis Stop: 06/25/19 08:12 Last Admin: 06/24/19 17:28 Dose: 2.5 mg Octyl Cyanoacrylate (Dermabond Advance) Confirm Administered Dose 1 applic .ROUTE .STK-MED ONE Stop: 06/24/19 07:46 Octyl Cyanoacrylate (Dermabond Advance) Confirm Administered Dose 1 applic .ROUTE .STK-MED ONE Stop: 06/24/19 08:23 Ondansetron HCl (Zofran) Confirm Administered Dose 4 mg .ROUTE .STK-MED ONE Stop: 06/24/19 07:26 Oxytocin (Pitocin) Confirm Administered Dose 20 unit .ROUTE .STK-MED ONE Stop: 06/24/19 07:26 - Interaction Infant Disposition, : at Bedside Infant Interaction: Holding Infant - Recovery Exam Fundal Tone: Firm Fundal Level: 1 Fingerbreadths Below Umbilicus Fundal Placement: Midline Lochia Amount: Scant Lochia Color: Rubra/Red Perineum Description: Intact, Minimal Bruising/Swelling Episiotomy/Laceration: None Bladder Status: Voiding Urinary Elimination: Voided - Exam General: Alert, Oriented, Cooperative, No Acute Distress HEENT: Pupils Equal, Pupils Reactive Neck: Supple, Trachea Midline, No JVD Lungs: Normal Respiratory Effort GI/Abdominal Exam: Soft, Non-Tender, No Organomegaly Extremities: Normal Inspection, Normal Range of Motion, Non-Tender, No Pedal Edema Skin: Warm, Dry, Intact Wound/Incisions: Healing Well Neurological: No New Focal Deficit Psy/Mental Status: Alert, Normal Affect, Normal Mood - Problem List Review Problem List Initiated/Reviewed/Updated: Yes - Assessment Assessment:: 29yo POD2 s/p primary , stable and recovering well. - Plan Plan:: vitals stable Hgb 8.4, light bleeding, denies s/s of anemia, will start iron supplements after discharge pain controlled ambulating, voiding and tolerating PO. + flatus Plan for discharge home today, given care instructions.
[2019-06-26] MEDS: Acetaminophen/oxyCODONE 325-5 MG Tab PO PRN (11:26)
[2019-06-26] MEDS: Docusate Sodium 100 MG Cap PO SCH (13:57)
== END 2019-06-26 12:57 | disposition home or self-care (01) | DRG 540 ==
LOC: MW.OB 05:10
PROVIDERS: ADMIT Obstetrics & Gynecology; ATTEND Obstetrics & Gynecology
PROC: 10D00Z1 Extraction of Products of Conception, Low, Open Approach (ICD-10-PCS; principal; 2019-06-24)
DX: O43.893 Other placental disorders, third trimester (principal); O75.89 Other specified complications of labor and delivery; Z3A.39 39 weeks gestation of pregnancy; Z37.0 Single live birth
CPT/HCPCS: 36415; 59025; 82803; 85014; 85018; 85027; 86592; 86593; 86850; 86900; 86901; 88307; A9270-GY; J1200; J1885; J2270; J2300; J2405; J2590; J7120

== ENCOUNTER 2020-04-22 09:53 | Emergency (ER) | payer BC ==
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
[2020-04-22 11:02] LABS: BLOOD UREA NITROGEN,BUN 14 mg/dL (7.0-18.0); CARBON DIOXIDE,CO2 25.2 mmol/L (21.0-32.0); CHLORIDE,CL 101 mmol/L (98-107); GLUCOSE RANDOM 85 mg/dL (74-106); POTASSIUM,K 3.7 mmol/L (3.5-5.1); SODIUM,NA 138 mmol/L (136-145)
[2020-04-22] MEDS ORDERED: Sodium Chloride 0.9% 1,000 ML IV ONE (11:18)
[2020-04-22] MEDS ORDERED: Iopamidol 755 Mg/ML 100 ML Bottle IVPUSH ONE (11:43)
--- NOTE | 2020-04-22 12:23 | CT ---
Indication: Pelvic pain. The gross a ptosis. Technique: Multiple contiguous axial images were obtained from the lung bases is symphysis pubis after the intravenous administration of 100 milliliters Isovue 370. Please note that all CT scans at this facility use dose modulation, iterative reconstruction, and/or weight-based dosing when appropriate to reduce radiation dose to as low as reasonably achievable. Comparison: None Findings: The lung bases are clear. The heart is normal in size. No pericardial effusions identified. The liver, gallbladder, spleen, pancreas, adrenals, and kidneys are normal. No intrahepatic biliary ductal dilatation is identified. No hydronephrosis is identified. In the pelvis, the urinary bladder is normal. Fluid is identified within the endometrial canal. The left and the right ovary are grossly normal. The aorta is normal caliber. No free air or free fluid is identified within the abdomen or pelvis. Moderate amount of stool is identified within the colon. I cannot definitively identify the appendix. However, no definite inflammatory changes are identified in the right lower quadrant. The aorta is normal in caliber. No lytic or blastic lesions are identified. A minimal amount of free fluid may be present posterior to level of the uterus. This is best seen on images number [id number], series 201. Impression: I cannot definitively identify the appendix. However, no free air free fluid is identified within the abdomen or pelvis. No inflammatory changes are identified and the right lower quadrant. Fluid is identified within the endometrial canal. A minimal amount of fluid may be present posterior to the level of the uterus. No ultrasound of the pelvis may be of benefit if clinically indicated. Please note that all CT scans at this facility use dose modulation, iterative reconstruction, and/or weight-based dosing when appropriate to reduce radiation dose to as low as reasonably achievable. Dictated by Dulce Mann MD @ Apr 22 2020 12:13PM Signed by Dr. Dulce Mann @ Apr 22 2020 12:20PM
== END 2020-04-22 12:46 | disposition home or self-care (01) ==
LOC: MW.ED 09:53
DX: N93.8 Other specified abnormal uterine and vaginal bleeding (principal); D72.829 Elevated white blood cell count, unspecified
CPT/HCPCS: 36415; 74177; 80053; 81001; 84703; 85025; 99284; J7030; Q9967; 99283

== ENCOUNTER 2020-05-14 05:03 | Emergency (ER) | payer BC ==
--- NOTE | 2020-05-14 05:09 | EDM.PDOC ---
ED HPI GENERAL MEDICAL PROBLEM - General Stated Complaint: VOMITING Time Seen by Provider: 05/14/20 05:05 Source of Information: Reports: Patient History Limitations: Reports: No Limitations - History of Present Illness INITIAL COMMENTS - FREE TEXT/NARRATIVE: 29-year-old female no relevant past medical history presents for nausea and vomiting. Patient notes that she has a sick [id number] with similar symptoms who is also being seen in the emergency department. She notes that she was feeling well yesterday and this morning around 1 AM began to develop nausea with multiple episodes of emesis. Denies any associated fevers or URI-like symptoms. Denies any abdominal pain. No diarrhea - Related Data Allergies Allergy/AdvReac Type Severity Reaction Status Date / Time No Known Allergies Allergy Verified 05/14/20 05:24 Home Meds: Home Meds Antidepressant 04/22/20 [History] Ondansetron [Zofran ODT] 4 mg PO Q6H PRN #8 tab.dis 05/14/20 [Rx] Past Medical History - Past Health History Medical/Surgical History: Denies Medical/Surgical History HEENT History: Reports: Impaired Vision Other HEENT History: wears glasses, but did not bring Cardiovascular History: Reports: None Respiratory History: Reports: Asthma Other Respiratory History: hx of exercised induced asthma- does not have an inhaler Gastrointestinal History: Reports: None Other Gastrointestinal History: hx of Hyperemesis with this Genitourinary History: Reports: None [employer] History: Reports: Ectopic , Musculoskeletal History: Reports: None Other Musculoskeletal History: hx of arthritis in her back- diagnosed as a teenager Neurological History: Reports: None Psychiatric History: Reports: Anxiety, Depression Other Psychiatric History: due to the of her father Endocrine/Metabolic History: Reports: None Hematologic History: Reports: None Immunologic History: Reports: None Oncologic (Cancer) History: Reports: None Dermatologic History: Reports: None - Infectious Disease History Infectious Disease History: Reports: Chicken Pox - Past Surgical History Other Female Surgeries/Procedures: removal of left tube in 2016 Social & Family History - Family History Family Medical History: No Pertinent Family History - Caffeine Use Caffeine Use: Reports: Coffee, Energy Drinks, Soda ED ROS GENERAL - Review of Systems Review Of Systems: Comprehensive ROS is negative, except as noted in HPI. ED EXAM, GENERAL - Physical Exam Exam: See Below Exam Limited By: No Limitations General Appearance: Alert, WD/WN, No Apparent Distress Throat/Mouth: Normal Voice, No Airway Compromise Head: Atraumatic, Normocephalic Neck: Normal Inspection Respiratory/Chest: No Respiratory Distress, Lungs Clear, Normal Breath Sounds, No Accessory Muscle Use Cardiovascular: Normal Peripheral Pulses, Regular Rate, Rhythm GI/Abdominal: Soft, Non-Tender Extremities: Normal Inspection Neurological: Alert, Normal Gait Psychiatric: Normal Affect, Normal Mood Skin Exam: Warm, Dry, Intact, Normal Color Course - Vital Signs Last Recorded V/S: Last Vital Signs Temp 97.3 F 05/14/20 05:30 Pulse 97 05/14/20 05:30 Resp 18 05/14/20 05:30 BP 122/74 05/14/20 05:30 Pulse Ox 98 05/14/20 05:30 - Orders/Labs/Meds Orders: Active Orders 24 hr Category Date Time Status Sodium Chloride 0.9% [Normal Saline] 1,000 ml Med 05/14/20 05:25 Active IV .Bolus Sodium Chloride 0.9% [Saline Flush] Med 05/14/20 05:25 Active 10 ml FLUSH ASDIRECTED PRN Sodium Chloride 0.9% [Saline Flush] Med 05/14/20 05:25 Active 2.5 ml FLUSH ASDIRECTED PRN Saline Lock Insert [OM.PC] Stat Oth 05/14/20 05:25 Ordered Medication Orders Sodium Chloride (Normal Saline) 1,000 mls @ 999 mls/hr IV .Bolus ONE Stop: 05/14/20 06:25 Last Admin: 05/14/20 05:34 Dose: 999 mls/hr Documented by: LISE Sodium Chloride (Sodium Chloride 0.9% 10 Ml Syringe) 10 ml FLUSH ASDIRECTED PRN PRN Reason: Keep Vein Open Last Admin: 05/14/20 05:35 Dose: 10 ml Documented by: LISE Sodium Chloride (Sodium Chloride 0.9% 2.5 Ml Syringe) 2.5 ml FLUSH ASDIRECTED PRN PRN Reason: Keep Vein Open Last Admin: 05/14/20 05:35 Dose: 2.5 ml Documented by: LISE Labs: Laboratory Tests 05/14/20 05/14/20 05/14/20 Range/Units 05:35 05:35 05:35 WBC 9.87 (4.0-11.0) K/uL RBC 3.84 L (4.30-5.90) M/uL Hgb 12.1 (12.0-16.0) g/dL Hct 36.1 (36.0-46.0) % MCV 94.0 (80.0-98.0) fL MCH 31.5 (27.0-32.0) pg MCHC 33.5 (31.0-37.0) g/dL RDW Std Deviation 46.5 (28.0-62.0) fl RDW Coeff of Caren 14 (11.0-15.0) % Plt Count 373 (150-400) K/uL MPV 10.40 (7.40-12.00) fL Neut % (Auto) 81.1 H (48.0-80.0) % Lymph % (Auto) 13.8 L (16.0-40.0) % [place] % (Auto) 4.3 (0.0-15.0) % Eos % (Auto) 0.6 (0.0-7.0) % Baso % (Auto) 0.2 (0.0-1.5) % Neut # (Auto) 8.0 H (1.4-5.7) K/uL Lymph # (Auto) 1.4 (0.6-2.4) K/uL [place] # (Auto) 0.4 (0.0-0.8) K/uL Eos # (Auto) 0.1 (0.0-0.7) K/uL Baso # (Auto) 0.0 (0.0-0.1) K/uL Nucleated RBC % 0.0 /100WBC Nucleated RBCs # 0 K/uL Lactate 0.8 (0.20-2.00) mmol/L Sodium 140 (136-145) mmol/L Potassium 4.2 (3.5-5.1) mmol/L Chloride 104 (98-107) mmol/L Carbon Dioxide 26.4 (21.0-32.0) mmol/L BUN 16 (7.0-18.0) mg/dL Creatinine 0.9 (0.6-1.0) mg/dL Est Cr Clr Drug Dosing 78.93 mL/min Estimated GFR (MDRD) > 60.0 ml/min Glucose 102 (74-106) mg/dL Calcium 8.6 (8.5-10.1) mg/dL Total Bilirubin 0.2 (0.2-1.0) mg/dL AST 16 (15-37) IU/L ALT 26 (14-63) IU/L Alkaline Phosphatase 67 (46-116) U/L Total Protein 8.1 (6.4-8.2) g/dL Albumin 3.7 (3.4-5.0) g/dL Globulin 4.4 H (2.6-4.0) g/dL Albumin/Globulin Ratio 0.8 L (0.9-1.6) HCG, Qual (NEG) 05/14/20 Range/Units 05:35 WBC (4.0-11.0) K/uL RBC (4.30-5.90) M/uL Hgb (12.0-16.0) g/dL Hct (36.0-46.0) % MCV (80.0-98.0) fL MCH (27.0-32.0) pg MCHC (31.0-37.0) g/dL RDW Std Deviation (28.0-62.0) fl RDW Coeff of Caren (11.0-15.0) % Plt Count (150-400) K/uL MPV (7.40-12.00) fL Neut % (Auto) (48.0-80.0) % Lymph % (Auto) (16.0-40.0) % [place] % (Auto) (0.0-15.0) % Eos % (Auto) (0.0-7.0) % Baso % (Auto) (0.0-1.5) % Neut # (Auto) (1.4-5.7) K/uL Lymph # (Auto) (0.6-2.4) K/uL [place] # (Auto) (0.0-0.8) K/uL Eos # (Auto) (0.0-0.7) K/uL Baso # (Auto) (0.0-0.1) K/uL Nucleated RBC % /100WBC Nucleated RBCs # K/uL Lactate (0.20-2.00) mmol/L Sodium (136-145) mmol/L Potassium (3.5-5.1) mmol/L Chloride (98-107) mmol/L Carbon Dioxide (21.0-32.0) mmol/L BUN (7.0-18.0) mg/dL Creatinine (0.6-1.0) mg/dL Est Cr Clr Drug Dosing mL/min Estimated GFR (MDRD) ml/min Glucose (74-106) mg/dL Calcium (8.5-10.1) mg/dL Total Bilirubin (0.2-1.0) mg/dL AST (15-37) IU/L ALT (14-63) IU/L Alkaline Phosphatase (46-116) U/L Total Protein (6.4-8.2) g/dL Albumin (3.4-5.0) g/dL Globulin (2.6-4.0) g/dL Albumin/Globulin Ratio (0.9-1.6) HCG, Qual NEGATIVE (NEG) Meds: Medications Generic Name Dose Route Start Last Admin Trade Name Freq PRN Reason Stop Dose Admin Sodium Chloride 1,000 mls @ 999 mls/hr 05/14/20 05:25 05/14/20 05:34 Normal Saline IV 05/14/20 06:25 999 mls/hr .Bolus ONE Administration Sodium Chloride 10 ml 05/14/20 05:25 05/14/20 05:35 Sodium Chloride 0.9% 10 Ml Syringe FLUSH 10 ml ASDIRECTED PRN Administration Keep Vein Open Sodium Chloride 2.5 ml 05/14/20 05:25 05/14/20 05:35 Sodium Chloride 0.9% 2.5 Ml Syringe FLUSH 2.5 ml ASDIRECTED PRN Administration Keep Vein Open Discontinued Medications Generic Name Dose Route Start Last Admin Trade Name Freq PRN Reason Stop Dose Admin Ondansetron HCl 4 mg 05/14/20 05:25 05/14/20 05:34 Ondansetron 4 Mg/2 Ml Sdv IVPUSH 05/14/20 05:26 4 mg ONETIME ONE Administration - Re-Assessments/Exams Free Text/Narrative Re-Assessment/Exam: 05/14/20 05:32 We will get basic labs. Will treat symptomatically with IV fluid bolus and Zofran. We will follow up results and disposition 05/14/20 06:14 Labs are unremarkable. Will discharge patient home with symptomatic treatment with Zofran Rx. Return precautions discussed Departure - Departure Time of Disposition: 06:14 Disposition: Home, Self-Care 01 Condition: Good Clinical Impression: Vomiting Qualifiers: Vomiting type: unspecified Vomiting Intractability: non-intractable Nausea presence: with nausea Qualified Code(s): R11.2 - Nausea with vomiting, unspecified - Discharge Information Prescriptions: Ondansetron [Zofran ODT] 4 mg PO Q6H PRN #8 tab.dis PRN Reason: Pain Instructions: Nausea and Vomiting, Adult Referrals: David Gil MD [Primary Care Provider] - Additional Instructions: The following information is given to patients seen in the emergency department who are being discharged to home. This information is to outline your options for follow-up care. We provide all patients seen in our emergency department with a follow-up referral. The need for follow-up, as well as the timing and circumstances, are variable depending upon the specifics of your emergency department visit. If you don't have a primary care physician on staff, we will provide you with a referral. We always advise you to contact your personal physician following an emergency department visit to inform them of the circumstance of the visit and for follow-up with them and/or the need for any referrals to a consulting specialist. The emergency department will also refer you to a specialist when appropriate. This referral assures that you have the opportunity for follow-up care with a specialist. All of these measure are taken in an effort to provide you with optimal care, which includes your follow-up. Under all circumstances we always encourage you to contact your private physician who remains a resource for coordinating your care. When calling for follow-up care, please make the office aware that this follow-up is from your recent emergency room visit. If for any reason you are refused follow-up, please contact the [facility] Department at and asked to speak to the emergency department charge nurse. Please follow up with your primary care physician. If you do not have a primary care physician, see below: [facility] [address] [place] [id number] [id number] [facility] [address] [place] [id number] Sepsis Event Note (ED) - Focused Exam Vital Signs: Vital Signs Temp Pulse Resp BP Pulse Ox 05/14/20 05:30 97.3 F 97 18 122/74 98 - My Orders Last 24 Hours: My Active Orders 05/14/20 05:25 Sodium Chloride 0.9% [Normal Saline] 1,000 ml IV .Bolus Sodium Chloride 0.9% [Saline Flush] 10 ml FLUSH ASDIRECTED PRN Sodium Chloride 0.9% [Saline Flush] 2.5 ml FLUSH ASDIRECTED PRN Saline Lock Insert [OM.PC] Stat - Assessment/Plan Last 24 Hours: My Active Orders 05/14/20 05:25 Sodium Chloride 0.9% [Normal Saline] 1,000 ml IV .Bolus Sodium Chloride 0.9% [Saline Flush] 10 ml FLUSH ASDIRECTED PRN Sodium Chloride 0.9% [Saline Flush] 2.5 ml FLUSH ASDIRECTED PRN Saline Lock Insert [OM.PC] Stat
[2020-05-14] MEDS ORDERED: Sodium Chloride 0.9% 2.5 ML Syringe FLUSH PRN (05:25)
[2020-05-14] MEDS ORDERED: Ondansetron 4 MG/2 ML SDV IVPUSH ONE (05:25)
[2020-05-14] MEDS ORDERED: Sodium Chloride 0.9% 1,000 ML IV ONE (05:25)
[2020-05-14] MEDS ORDERED: Sodium Chloride 0.9% 10 ML Syringe FLUSH PRN (05:25)
[2020-05-14 06:00] LABS: BLOOD UREA NITROGEN,BUN 16 mg/dL (7.0-18.0); CARBON DIOXIDE,CO2 26.4 mmol/L (21.0-32.0); CHLORIDE,CL 104 mmol/L (98-107); GLUCOSE RANDOM 102 mg/dL (74-106); POTASSIUM,K 4.2 mmol/L (3.5-5.1); SODIUM,NA 140 mmol/L (136-145)
== END 2020-05-14 06:40 | disposition home or self-care (01) ==
LOC: MW.ED 05:03
DX: R11.2 Nausea with vomiting, unspecified (principal)
CPT/HCPCS: 36415; 80053; 83605; 84703; 85025; 96374; 99284; J2405; J7030; 99283

== ENCOUNTER 2021-04-09 09:32 | Emergency (ER) | payer BC ==
[2021-04-09] MEDS ORDERED: Sodium Chloride 0.9% 1,000 ML IV ONE (09:59)
[2021-04-09] MEDS ORDERED: Ondansetron 4 MG/2 ML SDV IVPUSH ONE (09:59)
[2021-04-09 11:16] LABS: BLOOD UREA NITROGEN,BUN 9 mg/dL (7.0-18.0); CARBON DIOXIDE,CO2 26.7 mmol/L (21.0-32.0); CHLORIDE,CL 102 mmol/L (98-107); GLUCOSE RANDOM 103 mg/dL (74-106); LIPASE 61 U/L (73-393); POTASSIUM,K 4.3 mmol/L (3.5-5.1); SODIUM,NA 135 mmol/L (136-145)
[2021-04-09 11:31] LABS: CORONAVIRUS COVID-19 NAA POSITIVE (NEGATIVE); INFLUENZA A NAA NEGATIVE (NEGATIVE); INFLUENZA B NAA NEGATIVE (NEGATIVE)
== END 2021-04-09 11:56 | disposition home or self-care (01) ==
LOC: MW.ED 09:32
DX: U07.1 COVID-19 (principal); D72.829 Elevated white blood cell count, unspecified
CPT/HCPCS: 0240U; 36415; 71045; 80053; 81003; 81025; 83690; 85025; 96374; 99284; J2405; J7030

== ENCOUNTER 2022-06-16 07:40 | Emergency (ER) | payer BC ==
[2022-06-16] MEDS ORDERED: Sodium Chloride 0.9% 1,000 ML IV ONE ×2 (08:01→09:05)
[2022-06-16] MEDS ORDERED: Sodium Chloride 0.9% 10 ML Syringe FLUSH PRN (08:01)
[2022-06-16] MEDS ORDERED: Sodium Chloride 0.9% 2.5 ML Syringe FLUSH PRN (08:01)
[2022-06-16] MEDS ORDERED: Ondansetron 4 MG/2 ML SDV IVPUSH ONE (08:05)
[2022-06-16 08:52] LABS: POTASSIUM,K 3.8 mmol/L (3.5-5.1)
== END 2022-06-16 10:16 | disposition home or self-care (01) ==
LOC: MW.ED 07:40
DX: O21.1 Hyperemesis gravidarum with metabolic disturbance (principal); O99.511 Diseases of the respiratory system complicating pregnancy, first trimester; J45.909 Unspecified asthma, uncomplicated; Z3A.08 8 weeks gestation of pregnancy; Z86.16 Personal history of COVID-19; Z79.899 Other long term (current) drug therapy
CPT/HCPCS: 36415; 80053; 83690; 83735; 84703; 85025; 96361; 96374; 99284; J2405; J3490; J7030

== ENCOUNTER 2022-09-01 08:28 | Emergency (ER) | payer BC ==
[2022-09-01] MEDS ORDERED: Ondansetron 4 MG/2 ML SDV IVPUSH ONE (09:25)
[2022-09-01] MEDS ORDERED: Sodium Chloride 0.9% 1,000 ML IV ONE (09:25)
[2022-09-01] MEDS ORDERED: Promethazine 25 MG/ML SDV IM ONE (09:35)
[2022-09-01 10:18] LABS: BASOPHILS PERCENT AUTO 0.1 % (0.0-1.5); EOSINOPHILS PERCENT AUTO 0.2 % (0.0-7.0); HEMATOCRIT 31.4 % (36.0-46.0); HEMOGLOBIN 11.1 g/dL (12.0-16.0); LYMPHOCYTES ABSOLUTE AUTO 1.3 K/uL (0.6-2.4); LYMPHOCYTES PERCENT AUTO 10.5 % (16.0-40.0); MEAN CORPUSCULAR HEMOGLOBIN 32.3 pg (27.0-32.0); MEAN CORPUSCULAR HGB CONC 35.4 g/dL (31.0-37.0); MEAN CORPUSCULAR VOLUME 91.3 fL (80.0-98.0); MONOCYTES ABSOLUTE AUTO 0.6 K/uL (0.0-0.8); MONOCYTES PERCENT AUTO 4.9 % (0.0-15.0); NEUTROPHILS ABSOLUTE AUTO 10.6 K/uL (1.4-5.7); NEUTROPHILS PERCENT AUTO 84.3 % (48.0-80.0); NRBC ABSOLUTE 0 K/uL; PLATELET COUNT,PLT 254 K/uL (150-400); RED BLOOD CELL COUNT 3.44 M/uL (4.30-5.90); WHITE BLOOD CELL COUNT,WBC 12.51 K/uL (4.0-11.0)
[2022-09-01 10:54] LABS: LACTIC ACID 0.4 mmol/L (0.4-2.0)
[2022-09-01 11:03] LABS: A/G RATIO 0.8 (0.9-1.6); ALBUMIN 3.1 g/dL (3.4-5.0); BILIRUBIN TOTAL 0.2 mg/dL (0.2-1.0); CALCIUM 9.3 mg/dL (8.5-10.1); CREATININE 0.6 mg/dL (0.6-1.0); EST CRCL DRUG DOSING (CG) 115.16 mL/min; MAGNESIUM 1.9 mg/dL (1.8-2.4); POTASSIUM,K 4.2 mmol/L (3.5-5.1)
== END 2022-09-01 12:11 | disposition home or self-care (01) ==
LOC: MW.ED 08:28
DX: O21.0 Mild hyperemesis gravidarum (principal); O99.512 Diseases of the respiratory system complicating pregnancy, second trimester; J45.909 Unspecified asthma, uncomplicated; Z3A.20 20 weeks gestation of pregnancy; Z86.16 Personal history of COVID-19; Z79.899 Other long term (current) drug therapy
CPT/HCPCS: 36415; 80053; 83605; 83690; 83735; 84702; 85025; 96361; 96372; 96374; 99284; J2405; J2550; J7030

== ENCOUNTER 2023-01-01 16:49 | Observation (INO) | payer BC ==
[2023-01-01] MEDS ORDERED: Citric Acid/Sodium Citrate Solution 30 ML Cup PO ONE (17:20)
[2023-01-01] MEDS ORDERED: Sodium Chloride 0.9% 20 ML SDV IV PRN (17:20)
[2023-01-01] MEDS ORDERED: Sodium Chloride 0.9% 2.5 ML Syringe FLUSH PRN (17:20)
[2023-01-01] MEDS ORDERED: Sodium Chloride 0.9% 10 ML Syringe FLUSH PRN (17:20)
[2023-01-01] MEDS ORDERED: Oxytocin/0.9 % Sodium Chloride 30 UNIT/500 ML BAG IV SCH (17:30)
[2023-01-01] MEDS ORDERED: Lactated Ringers 1,000 ML IV SCH (17:30)
[2023-01-01 17:48] LABS: HEMOGLOBIN 11.2 g/dL (12.0-16.0); MEAN CORPUSCULAR HEMOGLOBIN 32.1 pg (28.0-32.0); MEAN CORPUSCULAR HGB CONC 36.1 g/dL (32.0-36.0); MEAN CORPUSCULAR VOLUME 88.8 fL (83.0-99.0); MEAN PLATELET VOLUME 11.5 fL (9.4-12.3); PLATELET COUNT,PLT 234 K/uL (150-400); RED BLOOD CELL COUNT 3.49 M/uL (4.10-5.30); WHITE BLOOD CELL COUNT,WBC 9.97 K/uL (3.9-11.3)
== END 2023-01-01 20:10 | disposition home or self-care (01) ==
LOC: MW.OBCHECK 16:49 → MW.OB 17:20
PROVIDERS: ADMIT Obstetrics & Gynecology; ATTEND Obstetrics & Gynecology
DX: O80 Encounter for full-term uncomplicated delivery (principal); Z3A.37 37 weeks gestation of pregnancy; Z98.890 Other specified postprocedural states
CPT/HCPCS: 59025; 85027; 86592; 86850; 86870; 86900; 86901; 86902; J7120; 36415

== ENCOUNTER 2023-01-12 05:10 | Inpatient (IN) | payer BC ==
[2023-01-12] MEDS ORDERED: Sodium Chloride 0.9% 20 ML SDV IV PRN (05:14)
[2023-01-12] MEDS ORDERED: Citric Acid/Sodium Citrate Solution 30 ML Cup PO ONE (05:14)
[2023-01-12] MEDS ORDERED: ceFAZolin 2 GM in Sodium Chloride 0.9% 50 ML IV ONE (05:14)
[2023-01-12] MEDS ORDERED: Sodium Chloride 0.9% 10 ML Syringe FLUSH PRN (05:14)
[2023-01-12] MEDS ORDERED: Sodium Chloride 0.9% 2.5 ML Syringe FLUSH PRN (05:14)
[2023-01-12] MEDS ORDERED: Oxytocin/0.9 % Sodium Chloride 30 UNIT/500 ML BAG IV SCH (05:15)
[2023-01-12] MEDS ORDERED: Lactated Ringers 1,000 ML IV SCH (05:15)
[2023-01-12 05:51] LABS: HEMATOCRIT 32.8 % (37.0-47.0); HEMOGLOBIN 11.7 g/dL (12.0-16.0); MEAN CORPUSCULAR HGB CONC 35.7 g/dL (32.0-36.0); MEAN CORPUSCULAR VOLUME 89.6 fL (83.0-99.0); MEAN PLATELET VOLUME 11.7 fL (9.4-12.3); PLATELET COUNT,PLT 253 K/uL (150-400); RED BLOOD CELL COUNT 3.66 M/uL (4.10-5.30); WHITE BLOOD CELL COUNT,WBC 10.46 K/uL (3.9-11.3)
[2023-01-12] MEDS ORDERED: fentaNYL 100 MCG/2 ML SDV ONE (07:08)
[2023-01-12] MEDS ORDERED: Oxytocin 10 Units/1 ML SDV ONE ×5 (07:08→08:07)
[2023-01-12] MEDS ORDERED: Ondansetron 4 MG/2 ML SDV ONE ×2 (07:08)
[2023-01-12] MEDS ORDERED: Dexamethasone 4 MG/ML 5 ML MDV ONE (07:09)
[2023-01-12] MEDS ORDERED: Phenylephrine 1% 10 MG/ML SDV ONE ×2 (07:09)
[2023-01-12] MEDS ORDERED: Ropivacaine 0.5% 5 MG/ML 30 ML SDV ONE (07:14)
[2023-01-12] MEDS ORDERED: Dexmedetomidine 200 MCG/2 ML SDV ONE (07:15)
[2023-01-12] MEDS ORDERED: Water For Injection, Sterile 60 ML ONE (07:15)
[2023-01-12] MEDS ORDERED: Naloxone 0.4 MG/ML SDV IVPUSH PRN (07:32)
[2023-01-12] MEDS ORDERED: Morphine 2 MG/ML SYRINGE IVPUSH PRN (07:32)
[2023-01-12] MEDS ORDERED: fentaNYL 100 MCG/2 ML SDV IVPUSH PRN (07:32)
[2023-01-12] MEDS ORDERED: Ondansetron 4 MG/2 ML SDV IVPUSH PRN (07:32)
[2023-01-12] MEDS ORDERED: droPERidol 5 MG/2 ML SDV IVPUSH PRN (07:32)
[2023-01-12] MEDS ORDERED: HYDROmorphone 2 MG/ML Syringe IVPUSH PRN ×3 (07:32→14:44)
[2023-01-12] MEDS ORDERED: Metoclopramide 10 MG/2 ML SDV IVPUSH PRN (07:32)
[2023-01-12] MEDS ORDERED: Albuterol 0.083% 2.5 MG/3 ML Neb Soln NEB PRN (07:32)
[2023-01-12] MEDS ORDERED: ePHEDrine 50 MG/ML SDV IVPUSH PRN (07:32)
[2023-01-12] MEDS ORDERED: ceFAZolin 1 GM Vial ONE (07:54)
[2023-01-12] MEDS ORDERED: Ketorolac 30 MG/ML SDV ONE (08:03)
[2023-01-12] MEDS ORDERED: Tranexamic Acid 1,000 MG/10 ML Vial ONE (08:09)
[2023-01-12] MEDS ORDERED: Bisacodyl 10 MG Supp RECTAL PRN (08:56)
[2023-01-12] MEDS ORDERED: Witch Hazel Medicated Pads 40/Jar TOP PRN (08:56)
[2023-01-12] MEDS ORDERED: oxyCODONE 5 MG Tab PO PRN (08:56)
[2023-01-12] MEDS ORDERED: Benzocaine/Menthol 20%-0.5% Spray 78 GM Cannister TOP PRN (08:56)
[2023-01-12] MEDS ORDERED: Ibuprofen 800 MG Tab PO PRN (08:56)
[2023-01-12] MEDS ORDERED: Docusate Sodium 100 MG Cap PO PRN (08:56)
[2023-01-12] MEDS ORDERED: Lanolin 100% Cream 7 GM Tube TOP PRN (08:56)
[2023-01-12 09:03] LABS: PH,UMBILICAL ARTERIAL 7.267 (7.18-7.38); PH,UMBILICAL VENOUS 7.359 (7.25-7.45)
[2023-01-12] MEDS ORDERED: Acetaminophen 1,000 MG in Premix Bag 1 BAG IV ONE ×2 (10:00→15:00)
[2023-01-12] MEDS ORDERED: Morphine 4 MG/ML Syringe IVPUSH PRN (13:49)
[2023-01-12] MEDS ORDERED: HYDROmorphone 1 MG/ML Syringe IVPUSH PRN ×2 (14:04→14:10)
[2023-01-12] MEDS ORDERED: Ketorolac 30 MG/ML SDV IVPUSH SCH ×2 (14:30→20:30)
[2023-01-12] MEDS: Ketorolac 30 MG/ML SDV IVPUSH SCH (20:50)
[2023-01-12] MEDS: Acetaminophen 1,000 MG in Premix Bag 1 BAG IV SCH (21:58)
[2023-01-13] MEDS: Ketorolac 30 MG/ML SDV IVPUSH SCH ×2 (02:49→08:55)
[2023-01-13] MEDS: Acetaminophen 1,000 MG in Premix Bag 1 BAG IV SCH (03:59)
[2023-01-13 06:19] LABS: HEMATOCRIT 26.9 % (37.0-47.0); HEMOGLOBIN 9.7 g/dL (12.0-16.0)
[2023-01-13] MEDS: Acetaminophen 500 MG Tab PO PRN ×2 (07:50→18:43)
[2023-01-13] MEDS ORDERED: Ondansetron 4 MG/2 ML SDV IVPUSH PRN (07:57)
[2023-01-13] MEDS ORDERED: Lactated Ringers 1,000 ML IV ONE ×2 (09:41→18:55)
[2023-01-13] MEDS ORDERED: Lidocaine 2% 5 ML SDV ONE (10:00)
[2023-01-13] MEDS ORDERED: droPERidol 5 MG/2 ML SDV ONE (10:00)
[2023-01-13] MEDS ORDERED: Metoclopramide 10 MG/2 ML SDV ONE (10:01)
[2023-01-13] MEDS ORDERED: hydrOXYzine Pamoate 25 MG Cap PO PRN (17:59)
[2023-01-14] MEDS: Acetaminophen 500 MG Tab PO PRN ×2 (01:23→07:38)
== END 2023-01-14 15:32 | disposition home or self-care (01) | DRG 540 ==
LOC: MW.OB 05:10
PROVIDERS: ADMIT Obstetrics & Gynecology; ATTEND Obstetrics & Gynecology
PROC: 10D00Z1 Extraction of Products of Conception, Low, Open Approach (ICD-10-PCS; principal; 2023-01-12 08:00)
DX: O34.211 Maternal care for low transverse scar from previous cesarean delivery (principal); O99.214 Obesity complicating childbirth; D64.9 Anemia, unspecified; O99.02 Anemia complicating childbirth; Z3A.39 39 weeks gestation of pregnancy; Z37.0 Single live birth
CPT/HCPCS: 36415; 59025; 82803; 85014; 85018; 85027; 86592; 86850; 86870; 86900; 86901; 86902; 86920; 86921; 86922; A9270-GY; J0131; J0690; J1100; J1170; J1790; J1885; J2371; J2405; J2590; J2765; J2795; J3010; J3490; J7120